=== PATIENT | female | born 1960 | race African-American/Black ===

== ENCOUNTER 2023-01-02 08:47 | Outpatient (CLI) | payer OTHER, SELFPAY ==
--- NOTE | 2023-01-02 11:00 | NEURO_ITS ---
Impression: # Complains of pain and numbness. # Left ulnar neuropathy across the elbow. # Needle/EMG exam mildly neurogenic in left first dorsal interosseous. Nerve Conduction Studies Anti Sensory Summary Table Stim Site NR Peak (ms) P-T Amp (?V) Site1 Site2 Delta-P (ms) Dist (cm) Tapan (m/s) Left Median Anti Sensory (2-3nd Digit) Wrist 3.1 70.7 Wrist 2-3nd Digit 3.1 14.0 45 Wrist 3.3 60.0 Wrist 2-3nd Digit 3.1 14.0 45 Right Median Anti Sensory (2-3nd Digit) Wrist 3.4 40.5 Wrist 2-3nd Digit 3.4 14.0 41 Wrist 3.2 55.9 Wrist 2-3nd Digit 3.4 14.0 41 Left Radial Anti Sensory (Base 1st Digit) Wrist 1.7 48.2 Wrist Base 1st Digit 1.7 0.0 Right Radial Anti Sensory (Base 1st Digit) Wrist 2.7 42.3 Wrist Base 1st Digit 2.7 0.0 Left Ulnar Anti Sensory (5th Digit) Wrist 2.9 81.9 Wrist 5th Digit 2.9 14.0 48 Right Ulnar Anti Sensory (5th Digit) Wrist 2.9 29.7 Wrist 5th Digit 2.9 14.0 48 Motor Summary Table Stim Site NR Onset (ms) O-P Amp (mV) Site1 Site2 Delta-0 (ms) Dist (cm) Tapan (m/s) Left Median Motor (Abd Poll Brev) Wrist 3.4 4.7 Elbow Wrist 4.6 26.0 57 Elbow 8.0 4.5 Right Median Motor (Abd Poll Brev) Wrist 3.8 7.9 Elbow Wrist 4.7 27.0 57 Elbow 8.5 6.1 Left Ulnar Motor (Abd Dig Minimi) Wrist 2.3 5.9 A Elbow Wrist 5.7 28.0 49 A Elbow 8.0 4.6 B Elbow Wrist 4.1 21.0 51 B Elbow 6.4 8.1 Right Ulnar Motor (Abd Dig Minimi) Wrist 2.7 11.2 A Elbow Wrist 5.2 29.0 56 A Elbow 7.9 9.8 F Wave Studies NR F-Lat (ms) L-R F-Lat (ms) Left Median (Mrkrs) (Abd Poll Brev) 26.76 0.69 Right Median (Mrkrs) (Abd Poll Brev) 27.46 0.69 Left Ulnar (Mrkrs) (Abd Dig Min) 27.27 0.00 Right Ulnar (Mrkrs) (Abd Dig Min) 27.27 0.00 EMG Side Muscle Nerve Root Ins Act Fibs Amp Dur Recrt Comment Right 1stDorInt Ulnar C8-T1 Nml Nml Nml Nml Nml Right Ext Indicis Radial (Post Int) C7-8 Nml Nml Nml Nml Nml Right Ext Digitorum Radial (Post Int) C7-8 Nml Nml Nml Nml Nml Right BrachioRad Radial C5-6 Nml Nml Nml Nml Nml Right PronatorTeres Median C6-7 Nml Nml Nml Nml Nml Right Abd Poll Brev Median C8-T1 Nml Nml Nml Nml Nml Left 1stDorInt Ulnar C8-T1 Nml Nml Decr >12ms Reduced Left Ext Indicis Radial (Post Int) C7-8 Nml Nml Nml Nml Nml Left Ext Digitorum Radial (Post Int) C7-8 Nml Nml Nml Nml Nml Left BrachioRad Radial C5-6 Nml Nml Nml Nml Nml Left PronatorTeres Median C6-7 Nml Nml Nml Nml Nml Left Abd Poll Brev Median C8-T1 Nml Nml Nml Nml Nml MTDD
== END 2023-01-02 08:48 | disposition home or self-care (01) ==
LOC: ANHNEURO 08:49
PROVIDERS: PCP Internal Medicine Infectious Disease; Visit Provider Internal Medicine Infectious Disease
DX: G62.9 Polyneuropathy, unspecified (principal); G56.22 Lesion of ulnar nerve, left upper limb
CPT/HCPCS: 95886; 95911

== ENCOUNTER 2023-11-18 07:56 | Outpatient (CLI) | payer OTHER, SELFPAY ==
--- NOTE | 2023-11-18 08:06 | ECG_ITS ---
Test Date: 2023-11-18 08:19:57 Measurements Intervals Pierce Rate: 75 P: 45 ME: 178 QRS: 66 QRSD: 87 T: 58 QT: 402 QTc: 449 Interpretive Statements SINUS RHYTHM BASELINE ARTIFACT- I, II, III, AVR, AVL, AVF, V3-V6 NORMAL ECG No previous ECG available for comparison Electronically Signed On 11-18-2023 09:06:58 CDT by Ilan Martinez D.O.
[2023-11-18 08:35] LABS: Appearance Urine Clear (Clear); Bacteria Urine None Seen /hpf; Bilirubin Urine Negative (Negative); Blood Urine Negative (Negative); Color Urine Yellow (Yellow); Glucose Urine UA Negative (Negative); Ketones Urine Negative (Negative); Leukocyte Esterase Ur Negative LEU/UL (Negative); Nitrate Urine Negative (Negative); Non Pathogenic Casts 0-2; Protein Urine Trace mg/dL (Negative); Prothrombin Time 13.9 Seconds (11.1-14.7); RBC Urine 0-2 /hpf (0-2); Specific Grav Ur 1.005 (1.001-1.035); Squamous Epithelial Cell Urine None Seen /hpf (Few); Urobilinogen Urine 0.2 mg/dL (<2.0); WBC Urine 0-5 /hpf (0-3); pH Urine 5.5 (5.0-9.0)
[2023-11-18 08:45] LABS: Add Urine Microscopic? YES; Hematocrit 35.3 % (37.0-47.0); Hemoglobin 11.8 g/dL (12.0-15.0); Mean Corpuscular HGB Conc 33.4 g/dl (32-36); Mean Corpuscular Hemoglobin 29.6 pg (26-34); Mean Corpuscular Volume 88.5 fl (80-100); Mean Platelet Volume 8.6 fl (7.4-10.4); Platelet Count Result 400 k/mm3 (150-375); Red Blood Count 3.99 M/mm3 (4.2-5.4); Red Cell Distribution Width 13.5 % (11.5-14.5); White Blood Count 6.3 K/mm3 (4.5-10.0)
[2023-11-18 08:47] LABS: Anion Gap 16 mmol/L (4-12); Blood Urea Nitrogen 21 mg/dL (7-17); Calcium 9.2 mg/dL (8.4-10.2); Carbon Dioxide 20 mmol/L (22-30); Chloride 101 mmol/L (98-107); Estimated Glomerular Filt Rate 39; Glucose 120 mg/dL (65-110); Potassium 3.6 mmol/L (3.4-5.0); Sodium 137 mmol/L (137-145)
== END 2023-11-18 07:57 | disposition home or self-care (01) ==
PROVIDERS: PCP Internal Medicine Infectious Disease; Visit Provider Neurological Surgery
DX: M54.12 Radiculopathy, cervical region (principal); E11.9 Type 2 diabetes mellitus without complications; I10 Essential (primary) hypertension; Z01.818 Encounter for other preprocedural examination
CPT/HCPCS: 36415; 80048; 81001; 85027; 85610; 85730; 86850; 86900; 86901; 93005

== ENCOUNTER 2023-11-20 11:16 | Inpatient (IN) | payer OTHER, SELFPAY ==
[2023-11-15 14:18] VITALS: BMI 21.0
--- NOTE | 2023-11-15 14:20 | PC.NURSE ---
Report to the Outpatient Waiting Room, entrance under the green pavilion located off [facility], at time _0600_ on date _[id number]_. Planned Procedure Time: _0730_. Time changes happen often and if your time is changed the preop area will call you the afternoon before. - You and your visitor will be asked to self-screen and do not enter if you have any COVID symptoms. - A mask is optional within the hospital at this time. Patients may have clear liquids (water, carbonated beverages, clear teas, apple juice) until 3 hours prior to surgery with a maximum of 20 ounces. - No food from midnight until time of surgery Take the following medications with a SIP of water the morning of surgery: ___Gabapentin and if needed Acetaminophen. DO NOT STOP ANY OF YOUR OTHER PRESCRIPTION MEDICATIONS PRIOR TO SURGERY ?EXCEPT THE FOLLOWING Medications to discontinue per physician None Date to take last dose Please no make-up, nail gibraltarian, hairspray, perfume, deodorant, or body powder the day of surgery. No jewelry (including any body piercings) or valuables the day of surgery, leave them at home. Please take a shower or bath the night before, or the morning of, surgery with an antibacterial soap. Wear comfortable, loose fitting clothing. - Jewelry must be removed prior to entering the operating room. Rings and piercings that are not removed may be cut off. - The hospital will not accept responsibility for valuables. - Please leave all valuables, including medications, at home the day of surgery. If you are going home after surgery, a licensed hog driver must drive you home. - NO public transportation without another adult if you receive anesthesia. - We recommend that an adult stay with you for 24 hours following discharge. - We also recommend that you do not drive, make important decision, drink alcoholic beverages, or take any drugs that were not prescribed by your health care provider for at least 24 hours after your discharge time. Follow any additional instructions given to you from your surgeon. If you or anyone in your household have experienced Covid symptoms in the past week, please notify your surgeon or the nurse liaison at the phone number below for possible testing. Telephone instructions given to __Dianne___and asked if any additional questions and then verbalized understanding. Patient advised to call surgeon office or pre surgery nurse liaison [phone] if any additional questions.
[2023-11-20] VITALS (22 sets, daily range): BP systolic 110–181; BP diastolic 45–91; PULSE 72–98; RESP 12–20; TEMP 36–36.7; O2SAT 92–100
--- NOTE | ~2023-11-20 | XR_ITS ---
XR fluoroscopy no charge Indication: Posterior cervical decompression TECHNIQUE: Fluoroscopy used during posterior cervical decompression performed by [Destiny rosado MD] on 11/20/2023. 6 seconds of fluoroscopy with 6 fluoroscopic images captured. FINDINGS: Correlate with procedure note. IMPRESSION: Fluoroscopy used during posterior cervical decompression. Reviewed, dictated and finalized at location B.
[2023-11-20 06:30] LABS: Glucose Point of Care 123 mg/dl (65-105)
[2023-11-20 06:46] LABS: Hemoglobin A1C 5.7 % (<5.7)
--- NOTE | 2023-11-20 06:59 | WPDANESEPPF ---
Anes - Initial Pre Proc Eval Procedure: Operation Date: 11/20/23 07:30 Proposed Procedures p Posterior Cervical Decompression and Fusion C3-4, C4-5, C5-6, C6-7 - Destiny Bee MD Date/Time: 11/20/23 06:59 Surgeon: Destiny Bee MD Pre Op Diagnosis: cervical myelopathy Patient Data Age: 63 Gender: F Height: 1.55 m Weight: 50.5 kg Allergies Allergy/AdvReac Type Severity Reaction Status Date / Time No Known Allergies Allergy Verified 11/15/23 14:04 Home Medications Medication Instructions Recorded Confirmed Type acetaminophen 650 mg 650 mg PO Q8H PRN Pain 05/31/23 11/15/23 History tablet,extended release (Tylenol 8 Hour) atorvastatin 40 mg tablet 40 mg PO DAILY 05/31/23 11/15/23 History gabapentin 100 mg capsule 100 mg PO DAILY 05/31/23 11/15/23 History hydrochlorothiazide 12.5 mg tablet 12.5 mg PO DAILY 05/31/23 11/15/23 History Laboratory Tests 11/20/23 11/20/23 06:25 06:28 POC Capillary Glucose 123 H mg/dl (65-105) Hemoglobin A1c 5.7 % (<5.7) Patient hx anesthesia problems: none Family hx anesthesia problems: none Results Review: All pre-operative results and documents have been reviewed as part of the pre-operative evaluation. [facility] Past Medical History Medical History (Updated 11/20/23 @ 06:59 by Benedicto Jimenez MD) Diabetes HTN (hypertension) Hyperlipidemia Kidney disease Surgical History Surgical History (Updated 11/20/23 @ 07:03 by Benedicto Jimenez MD) History of total hip arthroplasty Family History Family History Father Diabetes mellitus Hypertension Mother Diabetes mellitus Hypertension Depression Heart disease Sibling Diabetes mellitus Hypertension Other Cerebrovascular accident Hypertension Social History Social History Smoking packs per day: 1 Smoking cigarettes per day: 20.0 Years smoked: 42 Smoking pack-years: 42.00 Smoking status: Former smoker Tobacco type: cigarettes Smoking end date: 12/15/21 Alcohol intake: current Drinks per week: 12 Alcohol use details: 2-3 beers per day Substance use type: does not use Do You Feel Safe in your Home?: Yes Lack of Transportation: No Lack of Food: Never True Current Housing: Decline to Answer Concerned About Future Housing: YES Difficulty Paying Gas/Electric Bills: No Difficulty Paying for Meds: No Currently Unemployed: No Education: Associate Degree Difficulty w/ Childcare or Family Care: No Living arrangements: with family Spiritual care concerns: No Anes - Eval Final PreProcedure Day of Procedure 11/20/23 06:59 Patient weight: normal Heart: regular rate and rhythm Lungs: clear to auscultation Airway: Mallampati scale class II Neurological: alert and oriented Last oral intake: >/= 8 hours ASA classification: III Emergent: no Anesthetic plan: proceed Anesthesia type and monitoring: general ETT and standard monitoring Results Review: All pre-operative results and documents have been reviewed as part of the pre-operative evaluation. Informed Consent: The patient's anesthetic plan and its attendant risks and benefits were discussed with the patient/family/POA. Questions were solicited and answers provided to the satisfaction of the patient/family/POA.
[2023-11-20] MEDS: LACTATED RINGERS 1,000 ML 30 ML IV CONT ×2 (07:00→11:12)
--- NOTE | 2023-11-20 07:17 | P.HP_ITS ---
H&P: HPI History of Present Illness Date/Time: 11/20/23 07:17 Chief Complaint: cervical myelopathy Narrative: From 07/31: Ms. Brand is a? 63-year-old female with history of diabetes, hypertension, hyperlipidemia, CKD, and COPD who returns for follow-up of cervical myelopathy.? The patient has been following with Chelsea who recognized that she was myelopathic and ordered an MRI cervical spine.? The patient reports several years of symptoms including pain in her neck, electric shock-like pains into the left arm to the wrist, numbness in her thumbs in fingertips on both sides, some difficulty with gripping objects, and some occasional feelings of imbalance.? She states that her hands will develop spasms and make it difficult for her to use them at times.? She does note some difficulty swallowing at times and feeling like things get stuck in her throat. ? She notably has had issues with what sounds like a bleeding gastric ulcer for which she has had couple sets upper and lower endoscopies.? She states that these symptoms are stable at this time.? Her diabetes has been so well controlled that she was taken off of her medication.? Regarding her COPD, she does not use oxygen and takes inhaler on occasion.? She does not take any blood thinners and does not smoke. 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 From 09/18: She denies any significant changes in her symptoms since her last visit. She returns today for follow-up with her CT scan and to discuss surgery. Review of Systems Review of Systems: All systems reviewed & are unremarkable except as noted in HPI and below PMFSH Past Medical History Medical History (Updated 11/20/23 @ 06:59 by Benedicto Jimenez MD) Diabetes HTN (hypertension) Hyperlipidemia Kidney disease Surgical History Surgical History (Updated 11/20/23 @ 07:03 by Benedicto Jimenez MD) History of total hip arthroplasty Family History Family History Father Diabetes mellitus Hypertension Mother Diabetes mellitus Hypertension Depression Heart disease Sibling Diabetes mellitus Hypertension Other Cerebrovascular accident Hypertension Social History Social History Smoking packs per day: 1 Smoking cigarettes per day: 20.0 Years smoked: 42 Smoking pack-years: 42.00 Smoking status: Former smoker Tobacco type: cigarettes Smoking end date: 12/15/21 Alcohol intake: current Drinks per week: 12 Alcohol use details: 2-3 beers per day Substance use type: does not use Do You Feel Safe in your Home?: Yes Lack of Transportation: No Lack of Food: Never True Current Housing: Decline to Answer Concerned About Future Housing: YES Difficulty Paying Gas/Electric Bills: No Difficulty Paying for Meds: No Currently Unemployed: No Education: Associate Degree Difficulty w/ Childcare or Family Care: No Living arrangements: with family Spiritual care concerns: No Meds Home Medications and Allergies Home Medications Medication Instructions Recorded Confirmed Type acetaminophen 650 mg 650 mg PO Q8H PRN Pain 05/31/23 11/15/23 History tablet,extended release (Tylenol 8 Hour) atorvastatin 40 mg tablet 40 mg PO DAILY 05/31/23 11/15/23 History gabapentin 100 mg capsule 100 mg PO DAILY 05/31/23 11/15/23 History hydrochlorothiazide 12.5 mg tablet 12.5 mg PO DAILY 05/31/23 11/15/23 History Allergies Allergy/AdvReac Type Severity Reaction Status Date / Time No Known Allergies Allergy Verified 11/20/23 07:09 Vital Signs Vital Signs - 24 hr 11/20/23 07:00 Temperature 97 F L Pulse Rate 84 Respiratory Rate 14 Blood Pressure 181/91 H Pulse Oximetry 100 Oxygen Delivery Room Air Exam Narrative: Positive Suazo's on right Positive Babinski on right 3-beat clonus on right 3+ patellar reflexes Unless otherwise stated above, the patient's physical exam is as follows: General: -Well developed and well nourished. No a cute distress. Cooperative with exam. Mental status: -Awake and oriented to person, place, an d time. Affect is normal. -Fund of knowledge appropriate -Recent and remote memory are intact -Attention span and concentration appear normal -Language function is normal -There is no evidence of aphasia in conv ersational speech. Cranial nerves: -CN II: Visual wood full to bedside co nfrontation -CN III, IV, : Pupils equal, round, an d reactive to light; extraocular movements, no ptosis, no nystagmus -CN V: Facial sensation intact in V1 thr ough V3 distributions -CN VII: Face symmetric -CN VIII: Hearing intact to conversation al speech -CN IX, X: Palate elevates symmetrically ; normal phonation -CN XI: Symmetric full strength of acosta ocleidomastoid and trapezius muscles -CN XII: Tongue protrudes midline Integumentary: -No obvious skin lesions or masses Motor: -Muscle tone normal without spasticity o f flaccidity. No atrophy. No fascicu lations. -No pronator drift -Right upper extremity: deltoid 5/5, bic eps 5/5, triceps 5/5, wrist extensors 5/5, wrist flexors 5/5, intrinsics 5/5 -Left upper extremity: deltoid 5/5, corie ps 5/5, triceps 5/5, wrist extensors 5/5, wrist flexors 5/5, intrinsics 5/5 -Right lower extremity: iliopsoas 5/5, q uadriceps 5/5, hamstrings 5/5, tibialis anterior 5/5, gastroc-soleus 5/5, EHL 5/5 -Left lower extremity: iliopsoas 5/5, qu adriceps 5/5, hamstrings 5/5, tibialis anterior 5/5, gastroc-soleus 5/5, EHL 5/5 Sensory: -Intact to light touch throughout -Normal proprioception throughout Reflexes: -1-2+ DTR's throughout -No Suazo's, clonus, or Babinski bilat erally Musculoskeletal: -Symmetric; no deformities, masses or te nderness; no known fractures -Cervical spine: no tenderness to palpat ion, no pain, and normal cervical spine movements. Normal cervical lordosis -Spurling's test negative -Tinel's sign negative -Shoulder: no pain on provocative testin g bilaterally -Elbow: no instability, subluxation, or laxity bilaterally ? I personally reviewed the MRI cervical spine and packs which shows degenerative disc disease most pronounced at C4-5, C5-6, and C6-7 severe stenosis at C4-5 and C5-6 causing spinal cord compression with T2 cord signal change at these levels Assessment and Plan Assessment and plan (1) Cervical spondylosis with myelopathy: Code(s): M47.12 - Other spondylosis with myelopathy, cervical region Status: Acute Plan Ms. Brand is a? 63-year-old female with history of diabetes, hypertension, hyperlipidemia, CKD, and COPD who presents with several years of myelopathic symptoms including electric shooting pains down the right arm, and numbness in the hands, difficulty gripping objects, some mild imbalance issues as well as neck pain.? On physical exam, she has a Chiquis sign on the right, hyperreflexia, positive Babinski's, and 3 beat clonus on the right side.? MRI cervical spine shows multilevel degenerative disease with severe stenosis at C4- 5 and C5-6 with T2 cord signal change at these levels as well.? I reviewed the imaging with the patient and her daughter. Given that she is subjectively and objectively myelopathic, I have recommended surgery in the form of posterior cervical decompression and fusion C3-7.? Plan: -To OR today for PCDF C3-7
--- NOTE | 2023-11-20 07:17 | WPDHPUPDATE1 ---
History and Physical Update Update Date/Time: 11/20/23 07:17 History and Physical has been reviewed, including an updated exam of the patient. There are NO changes in the patient's condition. Risks, benefits, and alternatives have been discussed and questions answered. Patient agrees to proceed with procedure.
[2023-11-20] MEDS: ceFAZolin 2 GM/D5W 50 ML 2 GM/50 ML BAG IVPB (07:45)
[2023-11-20] MEDS: BUPIVACAINE/EPINEPHRINE 0.5% 50 ML VIAL 30 ML INFILTRATE (08:52)
[2023-11-20] MEDS: BACITRACIN OINTMENT 15 GM TUBE 1 APPLIC TOPICAL (08:52)
--- NOTE | 2023-11-20 11:20 | P.OPB_ITS ---
Procedure Note - Brief Procedure Note - Brief Date of procedure: 11/20/23 cervical myelopathy Post-op diagnosis: Same Procedure performed: 1. Cervical laminectomies C4, C5, and C6 2. Cervical lateral mass screw placement right C3, bilateral C4, C5, C6, and C7 3. Posterior cervical arthrodesis C3-7 4. Use of neuromonitoring 5. Use of C-arm Surgeon: Destiny Bee MD Illustrator Set: Scot Anesthesia: GETA Findings: Small/hypoplastic lateral mass on left at C3, so a screw was not attempted to be placed Estimated blood loss (mL): 200 Drains: Yes Packing: No Pathology: None sent Complications: No immediate complications Condition: Stable Disposition: PACU
[2023-11-20 11:21] LABS: Glucose Point of Care 136 mg/dl (65-105)
[2023-11-20] MEDS: fentaNYL CITRATE INJ (*CRX) 100 MCG/2 ML VIAL 25 MCG IV PUSH ×4 (11:25→11:51)
--- NOTE | 2023-11-20 12:01 | P.OP_ITS ---
Procedure Note - Detailed Date of Procedure 11/20/23 Pre-op Diagnosis cervical myelopathy Post-op Diagnosis Same Procedure Performed 1. C4, C5, and C6 laminectomies 2. Right C3, bilateral C4, C5, C6, and C7 lateral mass instrumentation 3. C3-4, C4-5, C5-6, C6-7 arthrodesis with autograft 4. Use of C-arm for fluoroscopy 5. Use of neuromonitoring for MEP, SSEP Surgeon Destiny Bee MD Aquatic Ecologist Scot Anesthesia General Indications Ms. Brand is a? 63-year-old female with history of diabetes, hypertension, hyperlipidemia, CKD, and COPD who presents with several years of myelopathic symptoms including electric shooting pains down the right arm, and numbness in the hands, difficulty gripping objects, some mild imbalance issues as well as neck pain.? On physical exam, she has a Chiquis sign on the right, hyperreflexia, positive Babinski's, and 3 beat clonus on the right side.? MRI cervical spine shows multilevel degenerative disease with severe stenosis at C4- 5 and C5-6 with T2 cord signal change at these levels as well.?I have recommended surgery in the form of posterior cervical decompression and fusion C3-4, C4-5, C5-6, and C6-7. Risks including bleeding, pain, infection, weakness, worsening symptoms, paralysis, CSF leak, and anesthetic complications were discussed. We discussed that the goal of surgery is to prevent worsening of current symptoms. The patient provided written informed consent to proceed. Description of Procedure The patient was brought to the operating room where endotracheal anesthesia was induced. Neuromonitoring leads were applied, and a pre-flip baseline was obtained with normal MEPs and SSEPs. The Pelletier headholder was applied, and the patient was transferred to the operating table in the prone position. The head was secured to the bed. All pressure points were padded. Neuromonitoring was repeated which was stable. The C-arm was used to evaluate the planned incision. The planned surgical site was prepped and draped in usual sterile fashion. Time out was conducted, and local anesthesia was injected. A 10-blade scalpel was used to make the incision. The subcutaneous tissue was dissected with the bovie until the spinous processes were encountered. Self- retaining retractors were placed. A clamp was placed on a spinous process which was confirmed to be the C3 level with the C-arm. The incision was extended inferiorly to better expose down to the inferior level. The muscles were elevated in a subperiosteal fashion to expose the laminae and lateral masses of C3 through C7 bilaterally. The facet joints were exposed and defined with the bovie, and the airline pilot flight instructor holes for the lateral mass screws were created with the high-speed drill. On the right side, the hand drill was used to drill through the lateral mass to a depth of 12mm at C3. The trajectory was palpated with a ball-tip probe to ensure where were no breeches in the bone. The drill was then lengthened to 14mm. The 3.0mm tap was then passes. This was repeated at C4, C5, C6 and C7. Bone wax was placed over the screw holes. This was then repeated on the left side at C4, C5, C6, and C7. The lateral mass at C3 was too small for a screw, so this was omitted. No bone breaches were noted at the depth of 14mm. We then turned our attention to the laminectomies. The high-speed drill was used to create a trough through the laminae of C4, C5, and C6. The posterior elements were elevated with a Leksell and Kerrison rongeurs, and the bone was passed off to be morselized for autograft. The ligamentum flavum was elevated with the bone. Small residual pieces of ligamentum and bone were removed with the kerrison. T The facet joints were decorticated with the drill.? We ensured hemostasis with the bipolar and Floseal. We next turned our attention to the lateral mass screws. The screw trajectories were palpated again with the balltip probe. 14 x 3.5mm screws were placed at each level bilaterally. A 50mm diamond was placed bilaterally followed by set screws which were final tightened. The area was copiously irrigated. Morselized autograft was placed lateral to the screws bilaterally and into the facets. A hemovac drain was placed in the epidural space and tunneled inferiorly. All neuromonitoring measurements remained stable throughout the case. The muscle was approximated with 0 vicryl. The fascia was closed with 0 vicryl as well. The dermis was closed with 2-0 and 3-0 vicryl. The skin was closed with running 3-0 nylon. The drain was secured with a nylon as well. Sterile dressings were placed. The patient was then removed from the Holton headholder and returned supine. The patient was extubated and transferred to the PACU in stable condition. Billing codes: 42075, 63102, [id number], 17076 Estimated Blood Loss 200 Drains Yes Packing No Pathology None sent Complications None Condition Stable Disposition PACU [facility] Billing Surgery - Charge Forward: Surgery Billing
--- NOTE | 2023-11-20 12:44 | PC.NURSE ---
Returned from OR per [ ]. Report received from [Megan].
[2023-11-20] MEDS: SODIUM CHLORIDE 0.9% IV 1,000 ML 100 ML IV CONT (13:27)
[2023-11-20] MEDS: ACETAMINOPHEN 500 MG TABLET 1000 MG PO ×3 (13:27→23:45)
--- NOTE | 2023-11-20 13:54 | ADMGEN ---
This patient, Irene Brand, was admitted to [facility] Room 331-01. Patient/family oriented to hospital policies and general routines including ID bracelet, bed and alarms, visiting hours, pain management, procedures, bathroom and other care routines, personal items, smoking policy, room service/diet, and visiting hours. Information on how to activate the Rapid Response Team has been discussed. Patient/Family are encouraged to report perceived risks to care and to ask questions if they do not understand what they are told or what they should do. Report from Megan.
[2023-11-20] MEDS: ceFAZolin 1 GM/NS 50 ML 1 GM/50 ML BAG IVPB ×2 (14:03→21:14)
[2023-11-20] MEDS: oxyCODONE HCL (*CRX) 5 MG TAB IR PO (15:13)
--- NOTE | 2023-11-20 15:43 | PCPTNOTE ---
On 11/20/23, the student, [Patricia Alegria], provided care and completed [facility] documentation on this patient. I have reviewed the student's documentation and agree with the findings.
[2023-11-20] MEDS: oxyCODONE HCL (*CRX) 5 MG TAB IR 10 MG PO ×2 (18:07→23:46)
[2023-11-20] MEDS: DOCUSATE SODIUM 100 MG CAPSULE PO (21:14)
[2023-11-20] MEDS: MORPHINE SULFATE (*CRX) 2 MG/ML INJ IV PUSH (21:16)
[2023-11-21 02:11] VITALS: BP 166/67; PULSE 69; RESP 16; TEMP 36.2; O2SAT 100
[2023-11-21] MEDS: oxyCODONE HCL (*CRX) 5 MG TAB IR 10 MG PO ×2 (05:01→20:53)
[2023-11-21] MEDS: ACETAMINOPHEN 500 MG TABLET 1000 MG PO ×3 (05:01→17:18)
[2023-11-21] MEDS: ceFAZolin 1 GM/NS 50 ML 1 GM/50 ML BAG IVPB ×3 (05:02→20:54)
[2023-11-21 05:53] VITALS: BP 176/71; PULSE 80; RESP 16; TEMP 36.3; O2SAT 99
--- NOTE | 2023-11-21 08:00 | WPDANESPN ---
Anes - Prog Note Post-Op Date/Time: 11/21/23 08:00 Cardiovascular status: normal Respiratory status: normal Airway patency: baseline Mental status: baseline Post-Op hydration status: normal Vital Signs: Last Vital Signs Temp 36.3 C L 11/21/23 05:53 Pulse 80 11/21/23 05:53 Resp 16 11/21/23 05:53 BP 176/71 H 11/21/23 05:53 Pulse Ox 99 11/21/23 05:53 O2 Del Method Room Air 11/20/23 15:24 O2 Flow Rate 2 11/20/23 12:55 Pain Score (VAS): 2/10 given pain medicine I/O: Intake & Output 11/20/23 11/21/23 11/21/23 23:59 07:59 15:59 Intake Total 50 50 Output Total 20 95 Balance 30 -45 11/20/23 11:19 POC Capillary Glucose 136 H Post-procedural complaints: none Patient Feedback: Patient satisfied with anesthetic care.
[2023-11-21] MEDS: oxyCODONE HCL (*CRX) 5 MG TAB IR PO ×2 (09:16→14:47)
[2023-11-21] MEDS: ATORVASTATIN 40 MG TABLET PO (09:17)
[2023-11-21] MEDS: DOCUSATE SODIUM 100 MG CAPSULE PO ×2 (09:17→20:54)
[2023-11-21] MEDS: hydroCHLOROthiazide 12.5 MG CAPSULE PO (09:17)
[2023-11-21] MEDS: GABAPENTIN 100 MG CAPSULE PO (09:17)
[2023-11-21 10:16] VITALS: BP 120/45; PULSE 98; RESP 18; TEMP 36.7; O2SAT 96
[2023-11-21 14:16] VITALS: BP 133/61; PULSE 90; RESP 18; TEMP 36.1; O2SAT 100
--- NOTE | 2023-11-21 17:02 | WPDNEUROSGPN ---
Progress Note: A&P Assessment and Plan (1) Status post cervical arthrodesis: Code(s): Z98.1 - Arthrodesis status Status: Acute Plan -Keep hemovac drain for now -Pain control -PT/OT -Out of bed to chair -Will start DVT ppx tonight -Anticipate discharging home tomorrow Subjective Date/time seen: 11/21/23 17:02 Interval history: Ms. Brand is having quite a bit of neck pain which is improved compared to yesterday. She can get some pain into the shoulders. She was able to ambulate with physical therapy. She is tolerating PO, voiding independently, and passing gas. She thinks the sensation in her right hand is somewhat improved Review of Systems Review of Systems: All systems reviewed & are unremarkable except as noted in HPI and below Exam Narrative: AOx4 Full strength in upper extremities Sensation intact to light touch Small amount of serosanguinous drainage on dressing Objective Data Vital Signs Vital Signs: Vital Signs - 24 hr 11/20/23 18:16 11/20/23 20:56 11/21/23 02:11 Temperature 96.8 F L 97.3 F L 97.2 F L Pulse Rate 87 72 69 Respiratory Rate 18 20 16 Blood Pressure 145/55 H 178/73 H 166/67 H Pulse Oximetry 92 100 100 11/21/23 05:53 11/21/23 10:16 11/21/23 14:16 Temperature 97.4 F L 98.0 F 97.0 F L Pulse Rate 80 98 90 Respiratory Rate 16 18 18 Blood Pressure 176/71 H 120/45 L 133/61 Pulse Oximetry 99 96 100 Intake/Output Intake/Output: Intake & Output 11/18/23 11/19/23 11/20/23 11/21/23 23:59 23:59 23:59 23:59 Intake Total 350 890 Output Total 50 95 Balance 300 795 Meds/Results Medications: Active Medications Generic Name Dose Route Start Last Admin Trade Name Freq PRN Reason Stop Dose Admin Acetaminophen 1,000 mg 11/20/23 11:20 11/21/23 11:30 Acetaminophen 500 Mg Tablet PO 1,000 mg Q6H BRYAN Administration Al Hydrox/Mg Hydrox/Simethicone 20 ml 11/20/23 11:16 Mag Hydrox/Al Hydrox/Simeth 30 Ml Udc PO Q4H PRN Indigestion/Heartburn Atorvastatin Calcium 40 mg 11/21/23 09:00 11/21/23 09:17 Atorvastatin 40 Mg Tablet PO 40 mg DAILY BRYAN Administration Bisacodyl 10 mg 11/20/23 11:16 Bisacodyl 10 Mg Suppository RECTAL DAILY PRN Constipation Cyclobenzaprine HCl 10 mg 11/20/23 11:16 Cyclobenzaprine Hcl 10 Mg Tablet PO TID PRN Muscle Spasms Docusate Sodium 100 mg 11/20/23 21:00 11/21/23 09:17 Docusate Sodium 100 Mg Capsule PO 100 mg Q12HR BRYAN Administration Gabapentin 100 mg 11/21/23 09:00 11/21/23 09:17 Gabapentin 100 Mg Capsule PO 100 mg DAILY BRYAN Administration Hydrochlorothiazide 12.5 mg 11/21/23 09:00 11/21/23 09:17 Hydrochlorothiazide 12.5 Mg Capsule PO 12.5 mg DAILY BRYAN Administration Cefazolin Sodium 1 gm in 50 mls @ 100 mls/hr 11/20/23 14:00 11/21/23 14:48 Ancef 1 Gm/Ns 50 Ml IVPB 100 mls/hr Q8HR BRYAN Administration Morphine Sulfate 2 mg 11/20/23 11:16 11/20/23 21:16 Morphine Sulfate (*Crx) 2 Mg/Ml Inj IV PUSH 2 mg Q2H PRN Administration Breakthrough Pain Ondansetron HCl 4 mg 11/20/23 11:16 Ondansetron Inj 4 Mg/2 Ml Vial IV PUSH Q8H PRN Nausea And Vomiting Oxycodone HCl 10 mg 11/20/23 11:16 11/21/23 05:01 Oxycodone Hcl (*Crx) 5 Mg Tab Ir PO 10 mg Q4H PRN Administration Pain Rated 7-10 Oxycodone HCl 5 mg 11/20/23 11:16 11/21/23 14:47 Oxycodone Hcl (*Crx) 5 Mg Tab Ir PO 5 mg Q4H PRN Administration Pain Rated 4-6 Senna/Docusate Sodium 1 tab 11/20/23 11:16 Senna/Docusate Sodium Tablet PO HS PRN Constipation Radiology Results: ITS Impressions Fluoroscopy 11/20/23 10:45 IMPRESSION: Fluoroscopy used during posterior cervical decompression.
[2023-11-21] MEDS: CYCLOBENZAPRINE HCL 10 MG TABLET PO (18:23)
[2023-11-21 22:09] VITALS: BP 163/87; PULSE 85; RESP 20; TEMP 37.2; O2SAT 100
[2023-11-22] MEDS: ACETAMINOPHEN 500 MG TABLET 1000 MG PO ×3 (00:16→13:55)
[2023-11-22] MEDS: oxyCODONE HCL (*CRX) 5 MG TAB IR 10 MG PO (05:28)
[2023-11-22] MEDS: ceFAZolin 1 GM/NS 50 ML 1 GM/50 ML BAG IVPB ×2 (05:29→13:55)
[2023-11-22 06:16] VITALS: BP 173/81; PULSE 87; RESP 18; TEMP 36.3; O2SAT 98
[2023-11-22] MEDS: DOCUSATE SODIUM 100 MG CAPSULE PO (09:09)
[2023-11-22] MEDS: CYCLOBENZAPRINE HCL 10 MG TABLET PO ×2 (09:09→17:32)
[2023-11-22] MEDS: GABAPENTIN 100 MG CAPSULE PO (09:09)
[2023-11-22] MEDS: ATORVASTATIN 40 MG TABLET PO (09:09)
[2023-11-22] MEDS: hydroCHLOROthiazide 12.5 MG CAPSULE PO (09:09)
[2023-11-22 14:00] VITALS: BP 152/72; PULSE 84; RESP 16; TEMP 36.3; O2SAT 97
--- NOTE | 2023-11-25 16:07 | P.DS_ITS ---
DS: Admitting Diagnosis Discharge Date 11/22/23 Admitting Diagnosis Cervical myelopathy DS: Discharge Diagnosis Discharge Diagnosis (1) Status post cervical arthrodesis: Code(s): Z98.1 - Arthrodesis status Status: Acute DS: Summary Hospital Course Hospital Course: Ms. Brand presented for surgery on November 19; please see the operative note for more details. She was transferred to the floor after surgery. PT/OT were consulted who cleared her for discharge home. Her hemovac drain was removed on POD2. She was tolerating oral intake and voiding independently. She was determined ready for discharge home on POD2. Time Spent with Patient Time attestation: Total time spent providing and/or coordinating discharge services: Discharge Plan Discharge Consulting providers: Benedicto Jimenez; Daniel Toscano; Arcelia Peterson Discharging Clinician: Destiny Bee Patient Disposition: Home, Self-Care Activity: other - see discharge instructions Diet: as tolerated Wound Care Instructions: follow printed instructions Discharge Instructions: Discharge Instructions Procedure: Posterior cervical decompression and fusion Your doctor removed bone and ligament to decompress your spinal cord and nerve roots, and then placed hardware to stabilize the spine. Here are some instructions to follow upon discharge from the hospital to help in your recovery. Activity: Unless released by your doctor, you should not return to work. You should rest at home and let your body heal. Taking short walks is encouraged, but avoid strenuous exercise. Do not jog, run, lift weights, bicycle, or participate in other exercises unless specifically allowed by your doctor. Most importantly, avoid lifting objects heavier than a telephone book or a carton of milk as this places a strain on your neck. If possible, avoid household activities that involve lifting such as laundry, grocery shopping, or childcare. Try to arrange for help from friends and family for these activities while your neck heals. You should not drive for 7-10 days, until you are both off of narcotics and your neck has loosened up enough to safely check your blind spots. You may remove the dressing and shower starting on post-operative day 2 (Saturday). After showering, lightly dab your wound dry. Do not take baths or sit in a hot tub or pool until approved by your doctor. You may get your incision wet with soap and water, but do not submerge the incision under water. DO NOT SMOKE TOBACCO. Smoking has been proven to interfere with the normal healing of the bones in your neck. Smoking will dramatically reduce the success rate of your surgery. Diet: You can return to your usual diet, unless instructed otherwise by your doctor. Medications: You should resume taking all of your normal medications unless instructed otherwise by your doctor. You may take Tylenol 1000mg every 6 hours as needed for pain. If your pain is still uncontrolled after Tylenol, then take oxycodone. You may also take flexeril for neck pain and muscle spasms every 8 hours. However, you should not take anti-inflammatory medications (such as Motrin, Advil, ibuprofen, naproxen) unless specifically approved by your doctor. These medications can prevent your bones from healing properly after surgery. If you have questions about your normal medications (for example, those prescribed for high blood pressure), you should contact your primary care doctor. You will be given a prescription for pain medications and possibly a laxative, as pain medications can cause constipation. Take the pain medication as instructed. If your pain is not reasonably controlled by the medications, contact your doctor's office. Follow-up appointment: You should already have a follow-up appointment scheduled with Dr. Bee for removing your stitches in 2 weeks. If you do not have an appointment, call to schedule one. When to call our office: Although your surgery and recovery will likely be uneventful, you may have some residual aches and pains in your neck and/or arms. This is normal and should improve in the next few weeks. However, should you experience any of the following, call our office immediately. For medical emergencies, call [phone]. For urgent calls after hours, please call our exchange at [phone]. 1. Fevers 2. Drainage from your incision, or surrounding redness or swelling 3. Pain that is progressively getting worse and is not relieved by your medications 4. New numbness or weakness 5. Difficulty controlling your bladder 6. Loss of control of your bowels Destiny Bee MD [facility] [address], [place] [address] Patient Instructions: Antibiotic Form, How to Stop Smoking (DC), Cigarette Smoking and Your Health (GEN) Stand Alone Forms: General Discharge Information Follow-up/Referrals: Destiny Bee MD [Physician] - Discharge Medications: New cyclobenzaprine 10 mg Tablet 10 mg PO TID PRN (Reason: Muscle Spasms) 10 Days Qty: 30 0RF sennosides-docusate sodium [Senokot-S] 8.6-50 mg Tablet 1 tab PO BID 7 Days Qty: 14 0RF oxycodone 5 mg Tablet 5 mg PO Q6H PRN (Reason: Pain Rated 4-6) 7 Days Qty: 28 0RF Continued atorvastatin 40 mg tablet 40 mg PO DAILY gabapentin 100 mg capsule 100 mg PO DAILY hydrochlorothiazide 12.5 mg tablet 12.5 mg PO DAILY acetaminophen [Tylenol 8 Hour] 650 mg tablet extended release 650 mg PO Q8H PRN (Reason: Pain) Date of admission: 11/20/23 11:16 Primary Care Provider: Hemalatha,Neil Admitting Provider: Destiny Bee Attending physician on admission: Destiny Bee Condition: Stable
== END 2023-11-22 19:40 | disposition home or self-care (01) | DRG 321 ==
LOC: ANH3MEDSUR 14:04
PROVIDERS: Admitting Provider Neurological Surgery; PCP Internal Medicine Infectious Disease; Visit Provider Neurological Surgery
PROC: 0RG2071 Fusion of 2 or more Cervical Vertebral Joints with Autologous Tissue Substitute, Posterior Approach, Posterior Column, Open Approach (ICD-10-PCS; principal; 2023-11-20 07:30)
DX: M47.12 Other spondylosis with myelopathy, cervical region (principal); M48.02 Spinal stenosis, cervical region; I12.9 Hypertensive chronic kidney disease with stage 1 through stage 4 chronic kidney disease, or unspecified chronic kidney disease; E11.22 Type 2 diabetes mellitus with diabetic chronic kidney disease; N18.9 Chronic kidney disease, unspecified; J44.9 Chronic obstructive pulmonary disease, unspecified; E78.5 Hyperlipidemia, unspecified
CPT/HCPCS: 36415; 82948; 83036; 97110; 97161; 97165; 97530; 97535; 99199; A9270; C1713; J0330; J0690; J1171; J1596; J2003; J2250; J2270; J2371; J2405; J2704; J2710; J3010; J7030; J7120

== ENCOUNTER 2024-08-12 13:00 | Outpatient (CLI) | payer OTHER, SELFPAY ==
--- NOTE | ~2024-08-12 | XR_ITS ---
Cervical Spine: AP, lateral, open-mouth views Clinical History: Pain Findings: There is straightening of the normal cervical lordosis. There is posterior fusion from C3 t hrough C7. There is multilevel moderate degenerative disc narrowing. Pre-vertebral soft tissues are u nremarkable. Impression: Posterior fusion from C3 through C7. Moderate degenerative disc narrowing throughout the cervical spine. Reviewed, dictated and finalized at location . Impression: Posterior fusion from C3 through C7. Moderate degenerative disc narrowing throughout the cervical spine.
--- NOTE | ~2024-08-12 | XR_ITS ---
Left Shoulder Technique: AP and scapular Y views were obtained. Clinical History: Pain Findings: No fracture or dislocation is seen. Osseous alignment is anatomic. The glenohumeral and acr omioclavicular joint spaces are preserved. Soft tissues are unremarkable. Impression: Unremarkable left shoulder radiographs. Reviewed, dictated and finalized at [facility]. Impression: Unremarkable left shoulder radiographs.
--- OUTSIDE RECORDS SUMMARY | 2024-08-12 14:07 | XMS_ITS | Encounter Summary ---
Author Organization [facility] , [facility] Address [address] [place] [address] Phone Care Team Providers Care Nuclear Power Plant Engineer Name Role Phone Neil Penny MD Primary Care Provider [phone] Reason for Visit * Reason Comments Med Refill Encounter Details Date Type Department Care Team (Late st Contact Info) Description 02/03/2022 Refill [facility] [employer] [facility], [facility] [address] [address] [address] [place] [address] Rachid Orourke MD [address] [facility] [address] [place] [address] Social History Tobacco Use Types Packs/Day Years Used Date Smoking Tobacco: Every Day Cigarettes Smokeless Tobacco: Never Alcohol Use Standard Drinks/Week Comments Yes 0 (1 standard drink = 0.6 oz pure alcohol) Alcoholic Drinks/day: Occasional social drink Comments Unknown Sex and Gender Information Value Date Recorded Sex Assigned at Female 06/12/2022 11:21 AM EST Legal Sex Female 2:50 PM EDT Gender Identity Female 06/12/2022 11:21 AM EST Sexual Orientation Straight 06/12/2022 11 :21 AM EST documented as of this encounter Plan of Treatment Not on file documented as of this encounter Visit Diagnoses Not on filedocumented in this encounter Care Teams Nuclear Power Plant Engineer Relationship Specialty Start Date End Date Neil Penny MD [address] [place] [address] PCP - General Internal Medicine 12/19/20 documented as of this encounter
--- OUTSIDE RECORDS SUMMARY | 2024-08-12 14:07 | XMS_ITS | Clinical Summary ---
Author Organization [facility] Address [address] [place] [address] Care Team Providers Care Automation Driver Name Role Phone Neil Penny MD Primary Care Provider Source Comments [facility],non-owned Affiliates and Associated Physician Practices is amultiple site organization consisting of ambulatory clinics and hospital sitesin [place], [place], [place] and [place]. This disclosure is being madepursuant to the Care Everywhere program and may not contain all information available regarding this patient. Last updated 18.[facility] Allergies No known active allergies Medications * Be aware that medications may not be up to date on this document. Alwaysverify current medications with the patient. 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 Gender Identity Not on file Sexual Orientation Not on file Plan of Treatment Health Maintenance Due Date Last Done Comments COLOGUARD (AGES 45-75) - COL ON CA SCREENING 1960 COLON MONITORING 1960 COLONOSCOPY - COLON CA SCREENING 1960 CT COLONOGRAPHY - COLON CA SCREENING 1960 Colorectal Cancer Screening 1960 FIT - COLON CA SCREENING 1960 FLEX SIG - COLON CA SCREENING 1960 LIPID TESTING 1960 MAMMOGRAM 1960 HIV SCREENING 1975 HEPATITIS C SCREENING 03/22/1978 DTAP/TDAP/TD VACCINES (1 - Tdap) 1979 LUNG CANCER SCREENING 2010 PNEUMOCOCCAL VACCINE 50+ (1 of 1 - PCV) 2010 ZOSTER VACCINE (1 of 2) 2010 COVID-19 VACCINE (1 - 2023-2 5 season) 2023 DEPRESSION SCREENING 04/29/2024 INFLUENZA VACCINE (Season Ended) 2024 Respiratory Syncytial Virus (RSV) Vaccine Pt: or over 60 yrs (1 - 1-dose 75+ series) 2035 HEPATITIS B VACCINE Aged Out No longe r eligible based on patient's age to complete this topic HIB VACCINE Aged Out No longer eligi ble based on patient's age to complete this topic HPV VACCINE Aged Out No longer eligi ble based on patient's age to complete this topic MENINGOCOCCAL (Group B) VACC INE SHARED DECISION-MAKING Aged Out No longer eligibl e based on patient's age to complete this topic MENINGOCOCCAL GROUPS A/C/Y/W VACCINE Aged Out No longer eligible b ased on patient's age to complete this topic [place] [address] MEDICA[place] [facility] [place] [address] [facility] Care Teams Automation Driver Relationship Specialty Start Date End Date Neli Penny MD [address] [place], [place] [id number] PCP - General 09/10/17
--- OUTSIDE RECORDS SUMMARY | 2024-08-12 14:07 | XMS_ITS | Clinical Summary ---
Author Organization [facility] Address [address] [place] [address] Care Team Providers Care Airport Shuttle Driver Name Role Phone Neil Penny MD Primary Care Provider [phone] Allergies No known active allergies Medications atorvastatin 40 MG tablet Take 1 tablet (40 mg total) by mouth nightly at bedtime. Active ferrous sulfate, 65 mg elemental, 325 (65 FE) MG tablet Take 1 tablet (325 mg total) by mouth every other day. 30 tablet 1 Active mirtazapine 7.5 MG Tab tablet Take 1 tablet (7.5 mg total) by mouth nightly at bedtime. Active albuterol (2.5 MG/3ML) 0.083% nebulizer solution Active buPROPion XL 150 MG 24 hr tablet 1 Active Cholecalciferol 50 MCG (2000 UT) Cap Take 1 capsule by mouth. Active Cobalamin Combinations (VITAMIN Y88-IVHAF ACID) 500-400 MCG Tab Take 1 tablet by mouth. Active tiotropium (SPIRIVA HANDIHALER) 18 MCG inhalation capsule Spiriva with HandiHaler 18 mcg and inhalation capsules Inhale by inhalation route. Active fluticasone propionate (FLONASE) 50 MCG/ACT nasal spray fluticasone propionate 50 mcg/actuation nasal spray,suspensio n USE 2 SPRAY(S) IN EACH NOSTRIL ONCE DAILY Active enoxaparin (LOVENOX) 30 MG/0.3ML Solution Prefilled Syringe Inject 0.3 mLs (30 mg total) into the skin daily. 2 Active omeprazole (PRILOSEC) 20 MG capsule Take 1 capsule (20 mg total) by mouth 2 (two) times a day. Active gabapentin (NEURONTIN) 100 MG capsule Take 1 capsule (100 mg total) by mouth nightly at bedtime. 30 capsule 2 Active carvedilol (COREG) 12.5 MG tablet Take 1 tablet (12.5 mg total) by mouth 2 (two) times daily. 60 tablet 2 Active cetirizine (ZYRTEC) 10 MG tablet Take 1 tablet (10 mg total) by mouth daily. 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) 04/19/2022 Disorder of shoulder 04/19/2022 Localized, primary osteoarthritis of shoulder re gion 04/19/2022 Ileus ([facility]) 04/14/2022 Acquired pes planus of both feet 01/06/2022 Diabetic peripheral neuropat hy associated with type 2 diabetes mellitus ([facility]) 01/06/2022 Gastric AVM 10/04/2021 Trochanteric bursitis of left hip 09/28/2021 Avascular necrosis of femoral head ([facility]) 05/23/2021 GI bleed not requiring more than 4 units of blood in 24 hours, ICU, or surgery 03/29/2021 GI bleed 03/28/2021 Chronic obstructive pulmonary disease ([facility]) 11/14/2020 Chronic neck pain 11/14/2020 Degeneration of lumbar intervertebral disc 11/14 Iron deficiency anemia 11/14/2020 Moderate smoker (20 or less per day) 11/14/2020 Osteoarthrosis 11/14/2020 Proteinuria 11/14/2020 Stage 3a chronic kidney disease 11/14/2020 Type 2 diabetes mellitus wit hout complication ([facility]) 11/14/2020 Diabetes mellitus ([facility]) 01/11/2017 Cardiovascular symptoms 12/17/2014 Chest pain 12/17/2014 Palpitations 12/17/2014 Primary hypertension 12/17/2014 Pure hypercholesterolemia 12/17/2014 Tobacco dependence syndrome 12/17/2014 Family History Medical History Relation Comments Cancer Father bone cancer Diabetes Mother Heart Disease Mother Relation Status Comments Father Mother Social History Tobacco Use Types Packs/Day Years Used Date Smoking Tobacco: Former Cigarettes 1 42 Smokeless Tobacco: Never Tobacco Cessation:Counseling Given: Not Answered Alcohol Use Standard Drinks/Week Comments Yes 5 (1 standard drink = 0.6 oz pur e alcohol) 4-6 5-6 days per week. Comments No Sex and Gender Information Value Date Recorded Sex Assigned at Not on file Legal Sex Female 8:12 PM CDT Gender Identity Female 08/07/2021 9:30 AM CDT Sexual Orientation Straight 08/07/2021 9: 30 AM CDT Last Filed Vital Signs Vital Sign Reading Time Taken Comments Blood Pressure 154/59 09/07/2022 12:30 PM CDT Pulse 67 09/07/2022 12:30 PM CDT Temperature 36.8 C (98.2 F) 09/07/2022 12:02 PM CDT Respiratory Rate 15 09/07/2022 12:30 PM CDT Oxygen Saturation 100% 09/07/2022 12:30 PM CDT Inhaled Oxygen Concentration - - Weight 44 kg (97 lb) 09/04/2022 3:40 PM CDT Height 154.9 cm (5' 1 ) 09/04/2022 3:40 PM CDT Body Mass Index 18.33 09/04/2022 3:40 PM CDT Plan of Treatment Health Maintenance Due Date Last Done Comments Cervical Cancer Screening Pap Smear (Age 30 to 64) Every 3 Years 1960 Kidney Health Evaluation 1960 Hemoglobin A1C 1960 Annual Physical 1963 Diabetes: Retinopathy Eye Exam 1978 Hepatitis C 1978 Cervical Cancer Screening Pap with HPV Testing (Age 30 to 64) Every 5 Years 1990 Cervical Cancer Screening with HPV 1990 Mammogram Screening 2000 Zoster Vaccines (1 of 2) 2010 Pneumococcal Vaccine: Pediatrics (0 to 5 Years) and At-Risk Patients (6 to 49 Years) (2 of 2 - PCV) 06/25/2018 06/25/2017 RSV Immunization or 60+ Years (1 - Risk 60-74 years 1-dose series) 2020 Lipid Panel 06/18/2023 06/18/2022, 12/21/2021 COVID-19 Vaccine ( season) 2023 08/11/2020, 07/14/2020 DTaP, Tdap and Td Vaccines (2 - Td or Tdap) 02/19/2027 02/19/2017 Colorectal Cancer Screening Colonoscopy (10 Years) 09/07/2032 09/07/2022, 09/07/2022, 03/15/2022, Additional history exists Colorectal Cancer Screening FIT/FOBT (1 Year) Discontinued 03/28/2021 Meningococcal B Vaccine Aged Out No l onger eligible based on patient's age to complete this topic Meningococcal Vaccine Aged Out No koko link eligible based on patient's age to complete this topic RSV Immunizations Under 20 Months Aged Out No longer eligible based on patient's age to complete this topic Goals Goal Patient Goal Type Associated Problems Recent Progress Patient-Stated? Author Patient will return to prior living situation and remain independent in ADLs upon discharge from hospital [facility] No Connie Cavazos RN Procedures Procedure Name Priority Date/Time Associated Diagnosis Comments COLONOSCOPY Routine 09/07/2022 9:54 AM CDT OCCULT BLOOD, FECES STAT 03/28/2021 4 :30 PM MILLING MACHINE SET UP OPERATOR from Last 3 Months or Most Recently Relevant to Health Maintenance Results * OCCULT BLOOD, FECES (03/28/2021 4:30 PM MILLING MACHINE SET UP OPERATOR) OCCULT BLOOD FECAL NEGATIVE 03/28/2021 5:21 PM MILLING MACHINE SET UP OPERATOR [facility] STOOL SPECIMEN / Unknown 03/28/2021 4:30 PM MILLING MACHINE SET UP OPERATOR us Karley LESLIE BODY FLUIDS AND STOOLS ORDERA BLES Final Result [facility] [address] [place] [address], [place] [phone] from Last 3 Months or Most Recently Relevant to Health Maintenance Insurance [employer] Advance Directives * Full Code (Latest Code Status on File) Date Activated Date Inactivated Comments 04/14/2022 4:37 PM 04/19/2022 11:04 PM * Full Code Date Activated Date Inactivated Comments 03/28/2021 7:37 PM 03/30/2021 2:20 PM Care Teams Airport Shuttle Driver Relationship Specialty Start Date End Date Neil Penny MD [address] [place] [address] PCP - General INTERNAL MEDICINE 03/28/21
--- OUTSIDE RECORDS SUMMARY | 2024-08-12 14:07 | XMS_ITS | CONTINUITY OF CARE DOCUMENT ---
Author Name radha dieudonnenaldo Address Unknown Organization [facility] Address [address] [place] [address] [address] [place] [address] Phone [phone] Care Team Providers Care Manager Proposal Name Role Phone Neil Yates MD Unavailable CHIP MELENDEZ MD Unavailable CHIP MELENDEZ MD Unavailable PROBLEMS Condition Status Date Provider Notes Diabetes mellitus active Neil Yates MD Chest pain-type to be determined active Andrea Yates MD Palpitations active Neil Yates MD Tobacco abuse active Neil Yates MD Hypercholesterolemia active Rekha San lder HTN essential active Neil Yates MD Other symptoms involving car diovascular system active Neil Yates MD ENCOUNTERS Date Type Provider Location Encounter Diag nosis - In-person encounter Office Visit Neil Yates MD [facility] - In-person encounter Office Visit Neil Yates MD [facility] Diabetes mellitus - In-person encounter Office Visit Neil Yates MD [facility] Other symptoms involving cardiovascular systemHTN essentialHypercholesterolemiaTobacco abusePalpitationsChest pain-type to be determined VITAL SIGNS Date Observation Value Provider Body Mass Index (Ratio) 21.79 kg/m2 Dariana Yates MD blood pressure, cuff size regular Ke rri Soila blood pressure, diastolic 84 mm[Hg] Ke rri Soila blood pressure, systolic 158 mm[Hg] Anitra ri Baljeetleidyjosse oxygen saturation, oximetry 92 % Rekha Sheehankateleidyjosse respiratory rate E&M 18 /min Rekha Jesus bangura pulse rate 90 /min Rekha [place] weight E&M 123 [lb_av] Rekha [place] height E&M 63 [in_i] Rekha Aguilacruz lala Body Mass Index (Ratio) 20.94 kg/m2 Dariana Yates MD blood pressure, resting Yes Miriam Kerr blood pressure, diastolic 80 mm[Hg] Milton Kerr blood pressure, systolic 135 mm[Hg] Vandana Kerr oxygen saturation, oximetry 96 % Valery Kerr respiratory rate E&M 18 /min Temitope Kerr pulse rate 80 /min Valery ugan weight E&M 118.2 [lb_av] Valery rivera height E&M 63 [in_i] Valery guan blood pressure, diastolic 86 mm[Hg] Milton Kerr blood pressure, systolic 152 mm[Hg] Vandana Kerr Body Mass Index (Ratio) 20.94 kg/m2 Miriam Kerr pulse rate 88 /min Valery guan oxygen saturation, oximetry 98 % Valery Kerr respiratory rate E&M 16 /min Temitope Kerr weight E&M 118.2 [lb_av] Valery rivera height E&M 63 [in_i] Valery Dain nson ALLERGIES No Known Drug Allergies RESULTS Date Observation Value Provider Reference Range Interpretation Location 2 magnesium, serum 2.2 mg/dL [facility] 1.6 - 2.6 2 free thyroxine index 8.0 ??g/dL [facility] 4.4 - 11.4 2 triiodothyronine uptake 1.0 TBI [facility] 0.8 - 1.3 2 thyroxine, serum, total 8.0 ??G/DL [facility] 4.5 - 11.7 2 thyroid stimulating hormone, serum 1.090 ?IU/ML [facility] 0.270 - 4.200 2 anion gap, serum 14.6 [facility] - 2 albumin/globulin ratio, serum 2.5 g/dL [facility] 1.1 - 2.5 High 2 globulin, serum 3.5 [facility] 2.3 - 3.8 2 urea nitrogen/creatinine ratio, serum 14.3 [facility] - 2 Estimated Glomerular Filtration Rate (calc) 92.7 (?) [facility] 59.0 - 2 chloride, serum 106.4 mmol/L [facility] 98.0 - 107.0 2 potassium, serum 4.3 mmol/L [facility] 3.5 - 5.1 2 sodium, serum 146.0 mmol/L [facility] 136.0 - 145.0 High 2 creatine, serum 0.7 mg/dL [facility] 0.5 - 0.9 2 carbon dioxide, venous blood 25.0 mmol/L [facility] 22.0 - 29.0 2 albumin, serum 4.5 g/dL [facility] 3.5 - 5.2 2 calcium, serum 9.9 mg/dL [facility] 8.6 - 10.2 2 aspartate aminotransferase (SGOT), serum 19.0 1/L [facility] 0.0 - 32.0 2 alkaline phosphatase, serum 108.0 1/L [facility] 40.0 - 130.0 2 alanine aminotransferase (SGPT), serum 14.0 1/L [facility] 0.0 - 33.0 2 protein, total, serum 8.0 g/dL [facility] 6.6 - 8.7 2 urea nitrogen, blood 10.0 mg/dL [facility] 6.0 - 20.0 2 Glucose Urine 96.0 mg/dL [facility] 74.0 - 99.0 2 bilirubin, serum, total 0.3 mg/dL [facility] 0.0 - 1.2 HISTORY OF MEDICATION USE Medication Status Instructions Dates Provider Indications Com ments COREG 25 MG ORAL TABLET active One tablet twice daily Neil Yates MD HYDROCHLOROTHIAZIDE 25 MG ORAL TABLET active ONE TAB DAILY Valery Kerr METFORMIN HCL 500 MG ORAL TABLET active once daily Valery Kerr TRAZODONE HCL TABLET completed 100 mg once daily - 10/09 Rekha Cm GABAPENTIN 300 MG ORAL CAPSULE active 3 times daily Valery Kerr EFFEXOR XR 37.5 MG ORAL CAPSULE EXTENDED RELEASE 24 HOUR active once daily Valery Kerr VITAMIN B-12 1000 MCG ORAL TABLET active One tablet a week Rekha Cm OLANZAPINE 5 MG ORAL TABLET active once daily Valery Kerr ATORVASTATIN CALCIUM 40 MG ORAL TABLET active once daily Valery Kerr ASPIRIN 325 MG ORAL TABLET active takes only when chest hurts Valery Kerr METOPROLOL TARTRATE 100 MG ORAL TABLET completed one tab. twice daily - Neil Yates MD SOCIAL HISTORY Date Observation Value Provider social history reviewed E&M revi ewed - no changes required Neil Yates MD alcohol use, average drinks per day 2 /d Rekha Cm alcohol use, type beer Rekha reyna smoking/tobacco cess ation, patient education and counseling yes Rekha Cm alcohol use yes Rekha reeves number of years as a smoker 35 a Rekha Bealer smoking history, tot al pack/day 2 Rekha Soila cigarette use yes Rekha Baljeetleidy josse smoking status current every day smoker Lupillo rothman Soila number of grandchildren Neil Yates MD U rodriguez Yates MD alcohol use, average drinks per day 2 /d Neil Yates MD alcohol use, type beer Neil munoz MD alcohol use yes Neil Yates MD social history reviewed E&M revi ewed - no changes required Neil Yates MD social history E&M Patient jun francisco smokes every day. Smoking History: P atient currently smokes every day. P atient has been counseled to quit. Neil Yates MD smoking/tobacco cess ation, patient education and counseling yes Valery Kerr number of years as a smoker 35 a Valery Kerr smoking history, tot al pack/day 2 Valery Kerr cigarette use yes Valery rivera smoking status current every day smoker Hermann Kerr social history E&M Patient jun francisco smokes every day. Smoking History: P atient currently smokes every day. P atient has been counseled to quit. Neil Yates MD social history reviewed E&M revi ewed - no changes required Neil Yates MD smoking/tobacco cess ation, patient education and counseling yes Neil Yates MD number of years as a smoker 35 a Valery Kerr smoking history, tot al pack/day 1 Valery Kerr cigarette use yes Valery rivera smoking status current every day smoker Parker Yates MD FAMILY HISTORY Family Member Condition Mother Family History of Di abetes: INSURANCE PROVIDERS Payer name Policy type / Coverage type [facility] [place] [employer] MEDICAID (2) Medicaid [id number] ADVANCE DIRECTIVES Name Date DISCUSSED - NO DECISION MADE TREATMENT PLAN Date Name Performer Cardiology Follow up - STNP:Continues on metformin. Neil Yates MD Cardiology Follow up - STNP:Continues on atorvastatin. Neil Yates MD Cardiology Follow up - STNP:Patient's blood pressure is elevated with pulse rate of 90bpm. Will change from metoprolol tartrate 100mg BID to Coreg 25mg BID. Patient is further advised to reduce her salt intake. Neil Yates MD Cardiology Follow up - STNP:Likely chest wall pain. Stress test showed normal perfusion. Echo shows normal LV size and systolic function with no wall motion abnormalities. Continues on ASA. Neil Yates MD Cardiology: B P today: 135/80 P rior BP: 152/86 (12/17/2014) Neil Yates MD Cardiology:The Patient was reenc ouraged to stop smoking. Neil Yates MD Cardiology Neil Yates MD Cardiology:Occassion ally lasts for days, continuously. Recommend adenosine stress test. Will also check echo to evaluate valves and heaart muscle. Neil Yates MD NEW:1 pack per day T he Patient was encouraged to stop smoking. Neil Yates MD NEW:BP 152/86 Neil Yates MD Date Name Complete Echo STR - Adenosine Holter Monitor 24 Hr MAGNESIUM THYROID PANEL WITH T SH, 3RD GENERATION COMPREHENSIVE METABO LIC PANEL W/EGFR Complete Echo HISTORY OF PROCEDURES Procedure Date Procedure Name Provider Procedure Notes S tatus SNOMED-CT: 628373732 Smoking Cessation Counseling Neil Yates MD completed ePrescribe - Check t his box if eRx is used Neil Yates MD completed SNOMED-CT: 732724256 [id number] Current Medications Documented Neil Yates MD completed Stress EKG Indra Breaux MD complete d Regadenoson, 4 units Neil Yates MD completed Cardiolite, 2 units Neil Yates MD completed SPECT Images Michael Keyes MD completed EKG Neil Yates MD completed SNOMED-CT: 788901751 [id number] Current Medications Documented Neil Yates MD completed EKG Neil Yates MD completed
--- OUTSIDE RECORDS SUMMARY | 2024-08-12 14:07 | XMS_ITS | Referral Summary ---
Author Organization [facility] Address [address] [place] [id number] Care Team Providers Care Safe Deposit Box Rental Clerk Name Role Phone Neil Penny MD Primary Care Provider Franck Flores MD Unavailable Encounters Date Type Department Care Team Description 05/27/2024 2:15 PM RF DESIGN ENGINEER Lab [facility] at [address] [address] Iron deficiency anemia, unspecified iron deficiency anemia type 05/27/2024 3:00 PM RF DESIGN ENGINEER Office Visit [facility] [address] [place] [address] [place] [phone] Franck Flores MD Iron deficiency anemia, unspecified iron deficiency anemia type (Primary Dx) from Last 3 Months Allergies No known active allergies Medications metFORMIN XR (GLUCOPHAGE XR) 500 mg 24 hr tablet Take 1 tablet (500 mg total) by mouth daily 2 Active omeprazole (PriLOSEC) 40 mg capsule Take 1 capsule (40 mg total) by mouth 2 (two) times a day 2 Active venlafaxine XR (EFFEXOR-XR) 37.5 mg 24 hr capsule 2 Active venlafaxine XR (EFFEXOR-XR) 75 mg 24 hr capsule 2 Active traMADoL (ULTRAM) 50 mg tablet 2 Active atorvastatin (LIPITOR) 40 mg tablet Take 1 tablet (40 mg total) by mouth daily 2 Active mirtazapine (REMERON) 7.5 mg tablet 2 Active carvediloL (COREG) 6.25 mg tablet Take 1 tablet (6.25 mg total) by mouth 2 Active hydroCHLOROthia zide (HYDRODIURIL) 25 mg tablet daily Active tiotropium (SPIRIVA) 18 mcg per inhalation capsule Spiriva with HandiHaler 18 mcg and inhalation capsules Inhale by inhalation route. 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 2-4 times a month 10/04/2021 Q2: How many drinks containi ng alcohol do you have on a typical day when you are drinking? 1 or 2 10/04/2021 Frequency of Binge Drinking Not on file 11/2021 Comments Unknown Sex and Gender Information Value Date Recorded Sex Assigned at Not on file Legal Sex Female 2:23 AM RF DESIGN ENGINEER Gender Identity Female 09/27/2022 1:07 PM CDT Sexual Orientation Not on file Last Filed Vital Signs Vital Sign Reading Time Taken Comments Blood Pressure 189/83 05/27/2024 3:23 PM RF DESIGN ENGINEER not ified rn Pulse 82 05/27/2024 3:23 PM RF DESIGN ENGINEER Temperature 37.1 C (98.8 F) 05/27/2024 3:23 PM RF DESIGN ENGINEER Respiratory Rate 18 05/27/2024 3:23 PM RF DESIGN ENGINEER Oxygen Saturation 97% 05/27/2024 3:23 PM RF DESIGN ENGINEER Inhaled Oxygen Concentration - - Weight 53.1 kg (117 lb) 05/27/2024 3:23 PM RF DESIGN ENGINEER Height 154.9 cm (5' 1 ) 10/09/2023 3:49 PM CDT Body Mass Index 22.11 10/09/2023 3:49 PM CDT Plan of Treatment Not on file Procedures Procedure Name Priority Date/Time Associated Diagnosis Comments DIFFERENTIAL AUTO Routine 05/27/2024 3:1 2 PM RF DESIGN ENGINEER Iron deficiency anemia, unspecified iron deficiency anemia type CBC WITH AUTO DIFFERENTIAL Routine 05/27/2024 3:12 PM RF DESIGN ENGINEER Iron deficiency anemia, unspecified iron deficiency anemia type FERRITIN Routine 05/27/2024 3:12 PM RF DESIGN ENGINEER Iron deficiency anemia, unspecified iron deficiency anemia type IRON PROFILE W/ IBC Routine 05/27/2024 3 :12 PM RF DESIGN ENGINEER Iron deficiency anemia, unspecified iron deficiency anemia type from Last 3 Months Results * Differential, auto (05/27/2024 3:12 PM RF DESIGN ENGINEER) Neutrophil abs 4.0 1.5 - 6.5 K/cumm Comment:Testing performed by : [address] [address] Imm gran abs 0.0 0.0 - 0.1 K/cumm [facility] Comment:Testing performed by : [address] [address] Lymphocyte abs 1.0 0.8 - 3.3 K/cumm [facility] Comment:Testing performed by : [address] [address] Monocyte abs 0.4 0.2 - 0.8 K/cumm [facility] Comment:Testing performed by : [address] [address] Eosinophil abs 0.1 0.0 - 0.5 K/cumm [facility] Comment:Testing performed by : [address] [address] Basophil abs 0.1 0.0 - 0.1 K/cumm [facility] Comment:Testing performed by : [address] [address] Neutrophil pct 70.7 % [facility] Comment: Interpretive Data Percent cell count reference ranges are not reported, since discordance with absolute values may lead to misinterpretation of CBC data. Current Interpretive Data was last revised on 2017. Testing performed by: [address] [address] Imm gran pct 0.4 % [facility] Comment: Interpretive Data Percent cell count reference ranges are not reported, since discordance with absolute values may lead to misinterpretation of CBC data. Current Interpretive Data was last revised on 2017. Testing performed by: [address] [address] Lymphocyte pct 18.3 % [facility] Comment: Interpretive Data Percent cell count reference ranges are not reported, since discordance with absolute values may lead to misinterpretation of CBC data. Current Interpretive Data was last revised on 2017. Testing performed by: [address] [address] Monocyte pct 7.2 % [facility] Comment: Interpretive Data Percent cell count reference ranges are not reported, since discordance with absolute values may lead to misinterpretation of CBC data. Current Interpretive Data was last revised on 2017. Testing performed by: [address] [address] Eosinophil pct 2.5 % [facility] Comment: Interpretive Data Percent cell count reference ranges are not reported, since discordance with absolute values may lead to misinterpretation of CBC data. Current Interpretive Data was last revised on 2017. Testing performed by: [address] [address] Basophil pct 0.9 % [facility] Comment: Interpretive Data Percent cell count reference ranges are not reported, since discordance with absolute values may lead to misinterpretation of CBC data. Current Interpretive Data was last revised on 2017. Testing performed by: [address] [address] Blood 05/27/2024 3:12 PM RF DESIGN ENGINEER 05/27/2024 3:14 PM RF DESIGN ENGINEER us Franck Flores MD LAB BLOOD ORDERABLES Fi nal Result [facility] [address] [facility] [place] [address] * Iron profile w/ IBC (05/27/2024 3:12 PM RF DESIGN ENGINEER) [facility] Iron 92 35 - 145 mcg/dL Comment:Testing performed by : [address] [address] TIBC 355 250 - 400 mcg/dL [facility] SPANN Comment:Testing performed by : [address] [address] Transferrin saturation 26 20 - 50 % [facility] SPANN Comment:Testing performed by : [address] [address] Blood 05/27/2024 3:12 PM RF DESIGN ENGINEER 05/27/2024 4:43 PM RF DESIGN ENGINEER Franck Flores MD LAB BLOOD ORDERABLES Fi nal Result Performing Organization Address City/State/[facility] Co de Phone Number [facility] [address] [facility] [facility] [place] [address] * (ABNORMAL) CBC with auto differential (05/27/2024 3:12 PM RF DESIGN ENGINEER) [facility] WBC 5.7 3.8 - 9.9 K/cumm Comment:Testing performed by : [address] [address] Hgb 11.8(L) 11.9 - 15.5 g/dL [facility] SPANN Comment:Testing performed by : [address] [address] Hct 34.6(L) 35.6 - 45.5 % [facility] SPANN Comment:Testing performed by : [address] [address] Plt 369 150 - 400 K/cumm [facility] SPANN Comment:Testing performed by : [address] [address] MPV 8.5(L) 9.1 - 12.3 fL [facility] SPANN Comment:Testing performed by : [address] [address] RBC 4.04 3.90 - 5.20 M/cumm [facility] Comment:Testing performed by : [address] [address] MCV 85.6 81.3 - 96.4 fL [facility] Comment:Testing performed by : [address] [address] MCH 29.2 27.1 - 33.3 pg [facility] SPANN Comment:Testing performed by : [address] [address] MCHC 34.1 32.3 - 35.7 g/dL [facility] Comment:Testing performed by : [address], [address] RDW CV 13.4 11.1 - 14.9 % [facility] Comment:Testing performed by : [address] [address] RDW SD 41.6 35.7 - 48.1 fL [facility] Comment:Testing performed by : [address], [address] NRBC abs 0.00 0.00 - 0.01 K/cumm [facility] Comment:Testing performed by : [address], [address] Blood 05/27/2024 3:12 PM RF DESIGN ENGINEER 05/27/2024 3:14 PM RF DESIGN ENGINEER Franck Flores MD LAB BLOOD ORDERABLES Fi nal Result [facility] [address] [facility] Department of Laboratories [place], [place] [id number] * Ferritin (05/27/2024 3:12 PM RF DESIGN ENGINEER) [facility] Ferritin 57 15 - 150 ng/mL Comment:Testing performed by : [address] [address] Blood 05/27/2024 3:12 PM RF DESIGN ENGINEER 05/27/2024 4:43 PM RF DESIGN ENGINEER Franck Flores MD LAB BLOOD ORDERABLES nal Result [facility] [address] [facility] Department [place] [address] from Last 3 Months Insurance [facility] Care Teams Safe Deposit Box Rental Clerk Relationship Specialty Start Date End Date Neil Penny MD [facility] [address] PCP - General Internal Medicine 08/30/21 Franck Flores MD [address] [place] [address] MEDICAL ONCOLOGY, [place] [address] Medical Oncologist/Consumer Marketing Analyst Hematology and Oncology 12/25/22
--- OUTSIDE RECORDS SUMMARY | 2024-08-12 14:07 | XMS_ITS | Clinical Summary ---
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 Iron deficiency anemia 09/22/2021 Encounters Date Type Department Care Team Description 05/27/2024 3:00 PM CHEMICAL PROCESSING SUPERVISOR Office Visit [facility] Oncology [facility] [facility] [address] [place] [id number] Franck Flores MD Iron deficiency anemia, unspecified iron deficiency anemia type (Primary Dx) 05/27/2024 2:15 PM CHEMICAL PROCESSING SUPERVISOR Lab [facility] at [address] [address] Iron deficiency anemia, unspecified iron deficiency anemia type from Last 3 Months Surgical History Surgery Date Site/Laterality Comments TUBAL LIGATION NECK SURGERY 11/20/2023 Medical History Medical History Date Comments Diabetes mellitus (HCC) Hypercholesteremia Hypertension Chronic kidney disease Peptic ulceration Anemia 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 Family History Medical History Relation Name Comments Bone cancer Father Relation Name Status Comments Father Social History Tobacco Use Types Packs/Day Years [...] on file Legal Sex Female 2:23 AM CHEMICAL PROCESSING SUPERVISOR Gender Identity Female 09/27/2022 1:07 PM CDT Sexual Orientation Not on file Obstetrics History Last Filed Vital Signs Vital Sign Reading Time Taken Comments Blood Pressure 189/83 05/27/2024 3:23 PM CHEMICAL PROCESSING SUPERVISOR not ified rn Pulse 82 05/27/2024 3:23 PM CHEMICAL PROCESSING SUPERVISOR Temperature 37.1 C (98.8 F) 05/27/2024 3:23 PM CHEMICAL PROCESSING SUPERVISOR Respiratory Rate 18 05/27/2024 3:23 PM CHEMICAL PROCESSING SUPERVISOR Oxygen Saturation 97% 05/27/2024 3:23 PM CHEMICAL PROCESSING SUPERVISOR Inhaled Oxygen Concentration - - Weight 53.1 kg (117 lb) 05/27/2024 3:23 PM CHEMICAL PROCESSING SUPERVISOR Height 154.9 cm (5' 1 ) 10/09/2023 3:49 PM CDT Body Mass Index 22.11 10/09/2023 3:49 PM CDT Plan of Treatment Health Maintenance Due Date Last Done Comments Breast Cancer Screening-Mammogram 1960 Cervical Cancer Screening 1960 Colon Cancer Screening-Colonoscopy 1960 Depression Screening 1960 Hepatitis C Screening 1960 DTaP/Tdap/Td Vaccine (1 - Tdap) 1971 Hepatitis B Screening 1978 Regular Well Visit/Exam 18-64 1978 Pneumococcal vaccine <65 (1 of 2 - PCV) 1979 Zoster Vaccine (1 of 2) 2010 Covid-19 Vaccine ( season) 2023 07/05/2021, 08/11/2020, 07/14/2020 Influenza Vaccine (Season Ended) 2024 Procedures Procedure Name Priority Date/Time Associated Diagnosis Comments DIFFERENTIAL AUTO Routine 05/27/2024 3:1 2 PM CHEMICAL PROCESSING SUPERVISOR Iron deficiency anemia, unspecified iron deficiency anemia type CBC WITH AUTO DIFFERENTIAL Routine 05/27/2024 3:12 PM CHEMICAL PROCESSING SUPERVISOR Iron deficiency anemia, unspecified iron deficiency anemia type FERRITIN Routine 05/27/2024 3:12 PM CHEMICAL PROCESSING SUPERVISOR Iron deficiency anemia, unspecified iron deficiency anemia type IRON PROFILE W/ IBC Routine 05/27/2024 3 :12 PM CHEMICAL PROCESSING SUPERVISOR Iron deficiency anemia, unspecified iron deficiency anemia type from Last 3 Months Results * Differential, auto (05/27/2024 3:12 PM CHEMICAL PROCESSING SUPERVISOR) Neutrophil abs 4.0 1.5 - 6.5 K/cumm Comment:Testing performed by : [facility], [address] [place] [address], [place]., [address] Imm gran abs 0.0 0.0 - 0.1 K/cumm [facility] Comment:Testing performed by : [address] [address] Lymphocyte abs 1.0 0.8 - 3.3 K/cumm [facility] Comment:Testing performed by : [address] [address] Monocyte abs 0.4 0.2 - 0.8 K/cumm [facility] Comment:Testing performed by : [address] [address] Eosinophil abs 0.1 0.0 - 0.5 K/cumm [facility] Comment:Testing performed by : [address] [address] Basophil abs 0.1 0.0 - 0.1 K/cumm [facility] Comment:Testing performed by : [address] [address] Neutrophil pct 70.7 % [facility] Comment: Interpretive Data Percent cell count reference ranges are not reported, since discordance with absolute values may lead to misinterpretation of CBC data. Current Interpretive Data was last revised on 2017. Testing performed by: [address] [address] Imm gran pct 0.4 % [facility] Comment: Interpretive Data Percent cell count reference ranges are not reported, since discordance with absolute values may lead to misinterpretation of CBC data. Current Interpretive Data was last revised on 2017. Testing performed by: [address] [address] Lymphocyte pct 18.3 % [facility] Comment: Interpretive Data Percent cell count reference ranges are not reported, since discordance with absolute values may lead to misinterpretation of CBC data. Current Interpretive Data was last revised on 2017. Testing performed by: [address] [address] Monocyte pct 7.2 % [facility] Comment: Interpretive Data Percent cell count reference ranges are not reported, since discordance with absolute values may lead to misinterpretation of CBC data. Current Interpretive Data was last revised on 2017. Testing performed by: [address] [address] Eosinophil pct 2.5 % [facility] Comment: Interpretive Data Percent cell count reference ranges are not reported, since discordance with absolute values may lead to misinterpretation of CBC data. Current Interpretive Data was last revised on 2017. Testing performed by: [address] [address] Basophil pct 0.9 % [facility] Comment: Interpretive Data Percent cell count reference ranges are not reported, since discordance with absolute values may lead to misinterpretation of CBC data. Current Interpretive Data was last revised on 2017. Testing performed by: [address] [address] Blood 05/27/2024 3:12 PM CHEMICAL PROCESSING SUPERVISOR 05/27/2024 3:14 PM CHEMICAL PROCESSING SUPERVISOR Franck Flores MD LAB BLOOD ORDERABLES Fi nal Result Performing Organization Address [facility] Co de Phone Number [address] [place] [address] * Iron profile w/ IBC (05/27/2024 3:12 PM CHEMICAL PROCESSING SUPERVISOR) Iron 92 35 - 145 mcg/dL Comment:Testing performed by : [address] [address] TIBC 355 250 - 400 mcg/dL [facility] Comment:Testing performed by : [address] [address] Transferrin saturation 26 20 - 50 % [facility] Comment:Testing performed by : [address] [address] Blood 05/27/2024 3:12 PM CHEMICAL PROCESSING SUPERVISOR 05/27/2024 4:43 PM CHEMICAL PROCESSING SUPERVISOR Franck Flores MD LAB BLOOD ORDERABLES Fi nal Result Performing Organization Address [facility]/ZIP Co de Phone Number [address] [place] [address] * (ABNORMAL) CBC with auto differential (05/27/2024 3:12 PM CHEMICAL PROCESSING SUPERVISOR) [facility] WBC 5.7 3.8 - 9.9 K/cumm Comment:Testing performed by : [address], [address] Hgb 11.8(L) 11.9 - 15.5 g/dL [facility] Comment:Testing performed by : [address], [address] Hct 34.6(L) 35.6 - 45.5 % [facility] Comment:Testing performed by : [address], [address] Plt 369 150 - 400 K/cumm [facility] Comment:Testing performed by : [address], [address] MPV 8.5(L) 9.1 - 12.3 fL [facility] Comment:Testing performed by : [address], [address] RBC 4.04 3.90 - 5.20 M/cumm [facility] Comment:Testing performed by : [address], [address] MCV 85.6 81.3 - 96.4 fL [facility] Comment:Testing performed by : [address], [address] MCH 29.2 27.1 - 33.3 pg [facility] Comment:Testing performed by : [address], [address] MCHC 34.1 32.3 - 35.7 g/dL [facility] Comment:Testing performed by : [address], [address] RDW CV 13.4 11.1 - 14.9 % [facility] Comment:Testing performed by : [address], [address] RDW SD 41.6 35.7 - 48.1 fL [facility] Comment:Testing performed by : [address], [address] NRBC abs 0.00 0.00 - 0.01 K/cumm [facility] Comment:Testing performed by : [facility], [address] [place] [address]., [address] Blood 05/27/2024 3:12 PM CHEMICAL PROCESSING SUPERVISOR 05/27/2024 3:14 PM CHEMICAL PROCESSING SUPERVISOR Franck Flores MD LAB BLOOD ORDERABLES Fi nal Result Performing Organization Address [facility] Co de Phone Number [facility] [address] [facility] [place] [employer] [place] [address] * Ferritin (05/27/2024 3:12 PM CHEMICAL PROCESSING SUPERVISOR) Ferritin 57 15 - 150 ng/mL Comment:Testing performed by : [facility], [address] [place] [address]., [address] Blood 05/27/2024 3:12 PM CHEMICAL PROCESSING SUPERVISOR 05/27/2024 4:43 PM CHEMICAL PROCESSING SUPERVISOR Franck Flores MD LAB BLOOD ORDERABLES Fi nal Result Performing Organization Address [facility] Co de Phone Number [address] [address] from Last 3 Months Insurance [facility] Care Teams Boat Rigger Relationship Specialty Start Date End Date Neil Penny MD [address] [place] [id number] PCP - General Internal Medicine 08/30/21 Franck Flores MD [address] [place] [address] MEDICAL ONCOLOGY, [address] [address] Medical Oncologist/Box Printing Machine Operator Hematology and Oncology 12/25/22
--- OUTSIDE RECORDS SUMMARY | 2024-08-12 14:07 | XMS_ITS | Clinical Summary ---
Author Organization [facility] Address [address] [address] Care Team Providers Care Hall Supervisor Name Role Phone Neil Penny MD Primary Care Provider [phone] Allergies No known active allergies Medications albuterol (2.5 MG/3ML) 0.083% nebulizer solution by Other route every 4 (four) hours Active gabapentin (NEURONTIN) 100 MG capsule Take 100 mg by mouth at bed time Active omeprazole (PriLOSEC) [address] capsule Take 20 mg by mouth 1 (one) time each day Do not crush or chew. Active atorvastatin (LIPITOR) 40 MG tablet Take 1 tablet (40 mg total) by mouth 1 (one) time each day 30 tablet 2 1 12/27/19 29 Active fluticasone (FLONASE) 50 MCG/ACT nasal spray Administer 1 spray into each nostril if needed for rhinitis Active mirtazapine (REMERON) 7.5 MG tablet Take 7.5 mg by mouth every night Active cetirizine (ZyrTEC) 10 MG tablet Take 10 mg by mouth 1 (one) time each day Active buPROPion XL (WELLBUTRIN XL) 150 MG 24 hr tablet Take 150 mg by mouth 1 (one) time each day Do not crush, chew, or split. Active tiotropium (SPIRIVA) 18 MCG per inhalation capsule Place 1 capsule into inhaler and inhale 1 (one) time each day Active Cobalamin Combinations (Vitamin I80-Svpnu Acid) 500-400 MCG tablet Take 1 tablet by mouth 1 (one) time each day Active hydroCHLOROthiazi de (MICROZIDE) 12.5 MG capsule Take 12.5 mg by mouth 1 (one) time each day Active lisinopril 5 MG tablet Take 1 tablet (5 mg total) by mouth at bed time 30 tablet 3 Active Active Problems Problem Noted Date Diagnosed Date Anemia due to blood loss 10/23/2022 Stage 3a chronic kidney disease 11/14/2020 Chronic neck pain 11/14/2020 Chronic obstructive pulmonary disease 11/14/2020 Degeneration of lumbar intervertebral disc 11/14 Iron deficiency anemia 11/14/2020 Moderate smoker (20 or less per day) 11/14/2020 Osteoarthritis 11/14/2020 Proteinuria 11/14/2020 Type 2 diabetes mellitus without complication Essential hypertension 12/17/2014 Immunizations Immunization Administration Dates Next Due Influenza TIV (IM) 02/27/2018 Family History Medical History Relation Comments Diabetes Mother Heart disease Mother Hypertension Mother Kidney disease Mother Hypertension Sibling Relation Status Comments Father Mother Sibling Social History Tobacco Use Types Packs/Day Years Used Date Smoking Tobacco: Former Cigarettes Q uit: 11/2021 Smokeless Tobacco: Never Tobacco Cessation:Counseling Given: Not Answered Alcohol Use Standard Drinks/Week Comments Yes 0 (1 standard drink = 0.6 oz pure alcohol) Alcoholic Drinks/day: Occasional social drink Comments Unknown Sex and Gender Information Value Date Recorded Sex Assigned at Female 06/12/2022 11:21 AM EST Legal Sex Female 2:50 PM EDT Gender Identity Female 06/12/2022 11:21 AM EST Sexual Orientation Straight 06/12/2022 11 :21 AM EST Last Filed Vital Signs Vital Sign Reading Time Taken Comments Blood Pressure 180/76 02/26/2023 10:39 AM CDT Pulse 70 02/26/2023 10:39 AM CDT Temperature 35.9 C (96.7 F) 02/26/2023 10:39 AM CDT Respiratory Rate 18 02/26/2023 10:39 AM CDT Oxygen Saturation 99% 02/26/2023 10:39 AM CDT Inhaled Oxygen Concentration - - Weight 47.6 kg (105 lb) 02/26/2023 10:39 AM CDT Height 152.4 cm (5') 02/26/2023 10:39 AM CDT Body Mass Index 20.51 02/26/2023 10:39 AM CDT Plan of Treatment Health Maintenance Due Date Last Done Comments Breast Cancer Screening 1960 Pneumococcal Vaccine: 50+ Years (1 of 2 - PCV) 1979 Colorectal Cancer Screening: Annual FOBT 2009 Colorectal Cancer Screening: Colonoscopy 2009 Colorectal Cancer Screening: Sigmoidoscopy 2009 Diabetes: Ophthalmology Exam 09/22/2020 Diabetes: Pedal Pulse Checked 09/22/2020 Diabetes: Sensory Foot Exam 09/22/2020 Diabetes: Visual Foot Exam 09/22/2020 Diabetes: Hemoglobin A1C 05/28/2023 023, 10/19/2022, 06/18/2022, Additional history exists Influenza Vaccine (Season Ended) 2024 02/27/2018 Hepatitis B Vaccine Aged Out No longe r eligible based on patient's age to complete this topic Procedures Procedure Name Priority Date/Time Associated Diagnosis Comments HEMOGLOBIN A1C Routine 02/25/2023 Proteinuria, not otherwise specified Type 2 diabetes mellitus without complication (HCC) Stage 3a chronic kidney disease (HCC) Chronic obstructive pulmonary disease, not otherwise specified (HCC) Essential hypertension Iron deficiency anemia, not otherwise specified Anemia due to blood loss from Last 3 Months or Most Recently Relevant to Health Maintenance Results * Hemoglobin A1c (02/25/2023) Hemoglobin A1C 5.0 PRINT /EXTERNAL (NON-INTERFACE D LABS) Blood (Blood, Venous) 02/25/2023 Rachid Orourke MD LAB BLOOD ORDERABLES Final R esult PRINT/EXTERNAL (NON-INTERFACED LABS) from Last 3 Months or Most Recently Relevant to Health Maintenance Insurance [facility] ([email or web address] Care Teams Hall Supervisor Relationship Specialty Start Date End Date Neil Penny MD [address] [place] [address] PCP - General Internal Medicine 12/19/20
== END 2024-08-12 13:01 | disposition home or self-care (01) ==
PROVIDERS: PCP Family Medicine; Visit Provider Neurological Surgery
DX: M47.22 Other spondylosis with radiculopathy, cervical region (principal); M25.512 Pain in left shoulder; M50.30 Other cervical disc degeneration, unspecified cervical region; Z98.1 Arthrodesis status
CPT/HCPCS: 72040; 73030

== ENCOUNTER 2024-09-08 13:14 | Outpatient (CLI) | payer OTHER, SELFPAY ==
--- NOTE | ~2024-09-08 | MR_ITS ---
MRI of the cervical spine Clinical History: Arthrodesis Technique: Axial T2-weighted and gradient images, and sagittal T1-weighted, T2-weighted, and STIR andria ges were acquired. Findings: No acute fracture or subluxation identified. There is posterior fusion from C3 through C7. No suspicious bone marrow signal abnormality seen. At C2-C3, there is no disc bulge or herniation. No spinal canal stenosis, cord compression, or neural foraminal narrowing. At C3-C4, there is minimal disc osteophyte convex. No canal stenosis, cord compression, or definite n eural foraminal narrowing. At C4-C5, there is mild degenerative thinning. No spinal canal stenosis, cord compression, or neural foraminal narrowing evident. At C5-C6, there is no spinal canal stenosis, cord compression, or definite neural foraminal narrowing . At C6-C7, there is moderate degenerative disc change. No definite disc bulge or herniation. No canal stenosis, cord compression, or definite neural foraminal narrowing. There is posterior decompression from C4 through C6. No abnormal signal seen in the spinal cord. Paravertebral soft tissues are otherwise unremarkable. Impression: Postoperative change from C3 through C7, as detailed above. Mild degenerative spondylosis overall currently. No canal stenosis or cord compression. Reviewed, dictated and finalized at location . Impression: Postoperative change from C3 through C7, as detailed above. Mild degenerative spondylosis overall currently. No canal stenosis or cord comp ression.
--- NOTE | ~2024-09-08 | CT_ITS ---
Noncontrast CT scan of the cervical spine Technique: Multiple contiguous axial [address] images of the cervical spine were obtained and rec onstructed in 2D sagittal and coronal planes on the acquisition scanner. Dose reduction technique was used on this scan by utilizing automated exposure control, adjustment of the mA and/or kV according to patient size. The dose-length product (DLP) was 128.73 mGy-cm. Clinical History: Arthrodesis Findings: There is mild reversal of normal cervical lordosis. There is posterior fusion hardware from C4 through C7, with bilateral rods and transpedicular screws present. No acute fracture or subluxati on identified. There is multilevel moderate degenerative disc narrowing throughout the cervical spine . There are anterior osteophytes are C4-C7, suggestive of DISH. There has been posterior decompressio n at C4, C5, and C6. At C2-C3, there is probable mild disc bulge. No definite canal stenosis, cord compression, or neural foraminal narrowing. At C3-C4, there is no definite canal stenosis. Possible mild left neural foraminal narrowing. Right n eural foramen preserved. At C4-C5, there is no definite canal stenosis. Probable minimal neural foraminal narrowing bilaterall y. At C5-C6, there is no canal stenosis. Neural foramina appear preserved. At C6-C7, there is no definite disc bulge or herniation. No spinal canal stenosis, cord compression, or definite neural foraminal narrowing. Paravertebral soft tissues are unremarkable. Impression: No fracture or subluxation of the cervical spine. Posterior fusion from C4 to C7 with posterior decompression from C4 through C6. Mild degenerative spondylosis overall, as detailed above. Reviewed, dictated and finalized at [facility]. Impression: No fracture or subluxation of the cervical spine. Posterior fusion from C4 to C7 with posterior decompression from C4 through C6. Mild degenerative spondylosis overall, as detailed above.
--- OUTSIDE RECORDS SUMMARY | 2024-09-08 13:34 | XMS_ITS | CONTINUITY OF CARE DOCUMENT ---
Author Name radha dieudonnenaldo Address Unknown Organization [facility] Address [address] [place] [address] [address] [place] [address] Phone [phone] Care Team Providers Care Program Development Manager Name Role Phone Neil Yates MD Unavailable CHIP MELENDEZ MD Unavailable HCIP MELENDEZ MD Unavailable PROBLEMS Condition Status Date [...] In-person encounter Office Visit Neil Yates MD [facility] - In-person encounter Office Visit Neil Yates MD [facility] Diabetes mellitus - In-person encounter Office Visit Neil Yates MD [facility] Other symptoms involving cardiovascular systemHTN essentialHypercholesterolemiaTobacco [...] Temitope Kerr pulse rate 80 /min Valery guan weight E&M 118.2 [lb_av] Valery rivera height [...] Payer name Policy type / Coverage type [facility] ID [employer] MEDICAID (2) Medicaid [id number] ADVANCE DIRECTIVES Name Date DISCUSSED - NO [...] Name Provider Procedure Notes S tatus SNOMED-CT: 039699094 Smoking Cessation Counseling Neil Yates MD completed ePrescribe - Check t his box if eRx is used Neil Yates MD completed SNOMED-CT: [id number] Current Medications Documented Neil Yates MD completed Stress EKG Indra Breaux MD complete d Regadenoson, 4 units Neil Yates MD completed Cardiolite, 2 units Neil Yates MD completed SPECT Images Michael Keyes MD completed EKG Neil Yates MD completed SNOMED-CT: [id number] Current Medications Documented Neil Yates MD completed EKG Neil Yates MD completed
--- OUTSIDE RECORDS SUMMARY | 2024-09-08 13:34 | XMS_ITS | Encounter Summary ---
Author Organization [facility] Healthcare Address [address] [place] [address] Care Team Providers Care Industry Consultant Name Role Phone Neil Penny MD Primary Care Provider Franck Flores MD Unavailable [phone] Encounter Details Date Type Department Care Team (Late st Contact Info) Description 09/07/2024 1:00 PM CDT Lab [facility] at [address] [address] Iron deficiency anemia, unspecified iron deficiency anemia type Social History Tobacco Use Types Packs/Day Years Used Date Smoking Tobacco: Former Cigarettes Q uit: 11/2021 Smokeless Tobacco: Never AUDIT-C Answer Date Recorded Q1: How often [...] on file 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 Gender Identity Female 09/27/2022 1:07 PM CDT Sexual Orientation Not on file documented as of this encounter Plan of Treatment Not on file documented as of this encounter Procedures Procedure Name Priority Date/Time Associated Diagnosis Comments BLOOD SMEAR REVIEW Routine 09/07/2024 1: 36 PM CDT Iron deficiency anemia, unspecified iron deficiency anemia type DIFFERENTIAL AUTO Routine 09/07/2024 1:3 6 PM CDT Iron deficiency anemia, unspecified iron deficiency anemia type IRON PROFILE W/ IBC Routine 09/07/2024 1 :36 PM CDT Iron deficiency anemia, unspecified iron deficiency anemia type CBC WITH AUTO DIFFERENTIAL Routine 09/07/2024 1:36 PM CDT Iron deficiency anemia, unspecified iron deficiency anemia type FERRITIN Routine 09/07/2024 1:36 PM CDT Iron deficiency anemia, unspecified iron deficiency anemia type documented in this encounter Results * (ABNORMAL) Blood smear review (09/07/2024 1:36 PM CDT) Pathologist [facility] RBC morphology Consistent with RBC Indicies Comment:Testing performed by : [address] [address] Platelet estimate Increased(A) AVERY SPANN Comment:Testing performed by : [address] [address] Blood 09/07/2024 1:36 PM CDT 09/07/2024 1:38 PM CDT Franck Flores MD LAB BLOOD ORDERABLES Fi nal Result AVERY [address] [facility] [place] [address] * Differential, auto (09/07/2024 1:36 PM CDT) Neutrophil abs 5.67 1.50 - 6.50 K/cumm Comment:Testing performed by : [address] [address] Imm gran abs 0.03 0.00 - 0.10 K/cumm AVERY SPANN Comment:Testing performed by : [address] [address] Lymphocyte abs 0.85 0.80 - 3.30 K/cumm AVERY Comment:Testing performed by : [address] [place]., [address] Monocyte abs 0.52 0.20 - 0.80 K/cumm [facility] Comment:Testing performed by : [address] [address] Eosinophil abs 0.07 0.00 - 0.50 K/cumm [facility] Comment:Testing performed by : [address] [address] Basophil abs 0.04 0.00 - 0.10 K/cumm [facility] Comment:Testing performed by : [address] [address] Neutrophil pct 79.0 % [facility] Comment: Interpretive Data Percent cell count reference ranges are not reported, since discordance with absolute values may lead to misinterpretation of CBC data. Current Interpretive Data was last revised on 2017. Testing performed by: [address] [address] Imm gran pct 0.4 % [facility] Comment: Interpretive Data Percent cell count reference ranges are not reported, since discordance with absolute values may lead to misinterpretation of CBC data. Current Interpretive Data was last revised on 2017. Testing performed by: [address] [address] Lymphocyte pct 11.8 % [facility] Comment: Interpretive Data Percent cell count reference ranges are not reported, since discordance with absolute values may lead to misinterpretation of CBC data. Current Interpretive Data was last revised on 2017. Testing performed by: [address] [address] Monocyte pct 7.2 % [facility] Comment: Interpretive Data Percent cell count reference ranges are not reported, since discordance with absolute values may lead to misinterpretation of CBC data. Current Interpretive Data was last revised on 2017. Testing performed by: [address] [address] Eosinophil pct 1.0 % [facility] Comment: Interpretive Data Percent cell count reference ranges are not reported, since discordance with absolute values may lead to misinterpretation of CBC data. Current Interpretive Data was last revised on 2017. Testing performed by: [address] [address] Basophil pct 0.6 % AVERY SPANN Comment: Interpretive Data Percent cell count reference ranges are not reported, since discordance with absolute values may lead to misinterpretation of CBC data. Current Interpretive Data was last revised on 2017. Testing performed by: [address] [address] Blood 09/07/2024 1:36 PM CDT 09/07/2024 1:38 PM CDT Franck Flores MD LAB BLOOD ORDERABLES Fi nal Result Performing Organization Address [facility] Co de Phone Number [address] [place] [address] * (ABNORMAL) Iron profile w/ IBC (09/07/2024 1:36 PM CDT) Iron 12(L) 35 - 145 mcg/dL Comment:Testing performed by : [address] [address] TIBC 389 250 - 400 mcg/dL AVERY Comment:Testing performed by : [address] [address] Transferrin saturation 3(L) 20 - 50 % AVERY SPANN Comment:Testing performed by : [address] [address] Blood 09/07/2024 1:36 PM CDT 09/07/2024 4:27 PM CDT Franck Flores MD LAB BLOOD ORDERABLES Fi nal Result Performing Organization Address [facility] Co de Phone Number [address] [place] [address] * Ferritin (09/07/2024 1:36 PM CDT) Ferritin 16 15 - 150 ng/mL Comment:Testing performed by : [address] [address] Blood 09/07/2024 1:36 PM CDT 09/07/2024 4:27 PM CDT Franck Flores MD LAB BLOOD ORDERABLES Fi nal Result AVERY SPANN [address] [facility] Department [place] [address] * (ABNORMAL) CBC with auto differential (09/07/2024 1:36 PM CDT) WBC 7.18 3.80 - 9.90 K/cumm Comment:Testing performed by : [address] [address] Hgb 5.0(C) 11.9 - 15.5 g/dL AVERY SPANN Comment: Repeated and Verified. This result has been called to Rosi Montero RN (secure chat) by [email or web address] on 09/07/2024 14:12:10, and has been read back. Testing performed by: [address] [address] Hct 16.6(L) 35.6 - 45.5 % AVERY SPANN Comment:Testing performed by : [address] [address] Plt 429(H) 150 - 400 K/cumm AVERY SPANN Comment:Testing performed by : [address] [address] MPV 8.8(L) 9.1 - 12.3 fL AVERY SPANN Comment:Testing performed by : [address] [address] RBC 2.17(L) 3.90 - 5.20 M/cumm AVERY SPANN Comment:Testing performed by : [address] [address] MCV 76.5(L) 81.3 - 96.4 fL AVERY SPANN Comment:Testing performed by : [address] [address] MCH 23.0(L) 27.1 - 33.3 pg AVERY SPANN Comment:Testing performed by : [address] [address] MCHC 30.1(L) 32.3 - 35.7 g/dL AVERY Comment:Testing performed by : [address] [address] RDW CV 17.2(H) 11.1 - 14.9 % AVERY Comment:Testing performed by : [address] [address] RDW SD 48.4(H) 35.7 - 48.1 fL AVERY Comment:Testing performed by : [address] [address] NRBC abs 0.00 0.00 - 0.01 K/cumm AVERY Comment:Testing performed by : [address] [address] ANC Prelim 5.67 1.50 - 6.50 K/cumm AVERY Comment: Interpretive Data The rapid ANC is a preliminary automated count and may vary from the final ANC (Neut Abs) reported in the WBC differential that follows. Current interpretive data was last revised 2024. Testing performed by: [address] [address] Blood 09/07/2024 1:36 PM CDT 09/07/2024 1:38 PM CDT us Franck Flores MD LAB BLOOD ORDERABLES Fi nal Result [facility] [address] [facility] Department [place] [address] documented in this encounter Visit Diagnoses Diagnosis Iron deficiency anemia, unspecified iron deficiency anemia type documented in this encounter Orders Appointment Requests Count Last Ordered Date Fi rst Ordered Date ONCBCN LAB APPOINTMENT 1 09/07/2024 documented in this encounter Care Teams Industry Consultant Relationship Specialty Start Date End Date Neil Penny MD [address] [place] [address] PCP - General Internal Medicine 08/30/21 Franck Flores MD [address] [place] [address] MEDICAL ONCOLOGY, [place] [id number] Medical Oncologist/Collar Setter [place] H[facility] Oncology 12/25/22 documented as of this encounter
--- OUTSIDE RECORDS SUMMARY | 2024-09-08 13:34 | XMS_ITS | Encounter Summary ---
Author Organization [facility] Address [address] [place] [address] Phone Care Team Providers Care Book Author Name Role Phone Neil Penny MD Primary Care Provider Franck Flores MD Unavailable [phone] Encounter Details Date Type Department Care Team (Late st Contact Info) Description 09/07/2024 Telephone [facility] Oncology [facility] [address] [place] [phone] Alexia Montero RN Social History Tobacco Use Types Packs/Day Years [...] on file 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 Left message for patient to call back, She needs to go to ED. Called patient again and informed her to go to ED with hemoglobin of 5. Patient agreeable. documented in this encounter Plan of Treatment Not on file documented as of this encounter Visit Diagnoses Not on filedocumented in this encounter Care Teams Book Author Relationship Specialty Start Date End Date Neil Penny MD [facility] [address] PCP - General Internal Medicine 08/30/21 Franck Flores MD [address] [place] [address] MEDICAL ONCOLOGY, [address] [address] Medical Oncologist/Television Script Writer Hematology and Oncology 12/25/22 documented as of this encounter
--- OUTSIDE RECORDS SUMMARY | 2024-09-08 13:34 | XMS_ITS | Encounter Summary ---
Author Organization [facility] Address [address] [place] [address] Phone Care Team Providers Care Paver Layer Name Role Phone Neil Penny MD Primary Care Provider Franck Flores MD Unavailable [phone] Encounter Details Date Type Department Care Team (Late st Contact Info) Description 09/04/2024 Telephone [facility] Oncology [address] 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 Craving ice again. Will recheck labs on Saturday per patient request documented in this encounter Plan of Treatment Not on file documented as of this encounter Results * (ABNORMAL) Iron profile w/ IBC (09/07/2024 1:36 PM CDT) Iron 12(L) 35 - 145 mcg/dL Comment:Testing performed by : [address] [address] TIBC 389 250 - 400 mcg/dL AVERY Comment:Testing performed by : [address] [address] Transferrin saturation 3(L) 20 - 50 % AVERY Comment:Testing performed by : [address] [address] Blood 09/07/2024 1:36 PM CDT 09/07/2024 4:27 PM CDT Franck Flores MD LAB BLOOD ORDERABLES Fi nal Result [facility] [address] [facility] Department of Laboratories [place], [place] [id number] * Ferritin (09/07/2024 1:36 PM CDT) Ferritin 16 15 - 150 ng/mL Comment:Testing performed by : [address] [address] Blood 09/07/2024 1:36 PM CDT 09/07/2024 4:27 PM CDT Franck Flores MD LAB BLOOD ORDERABLES Fi nal Result AVERY [address] [facility] Department [place] [address] * (ABNORMAL) CBC with auto differential (09/07/2024 1:36 PM CDT) WBC 7.18 3.80 - 9.90 K/cumm Comment:Testing performed by : [address] [address] Hgb 5.0(C) 11.9 - 15.5 g/dL AVERY Comment: Repeated and Verified. This result has been called to Rosi Michaud RN (secure chat) by [email or web address] on 09/07/2024 14:12:10, and has been read back. Testing performed by: [address] [address] Hct 16.6(L) 35.6 - 45.5 % AEVRY Comment:Testing performed by : [address] [address] Plt 429(H) 150 - 400 K/cumm AVERY Comment:Testing performed by : [address] [address] MPV 8.8(L) 9.1 - 12.3 fL AVERY Comment:Testing performed by : [address] [address] RBC 2.17(L) 3.90 - 5.20 M/cumm AVERY Comment:Testing performed by : [address] [address] MCV 76.5(L) 81.3 - 96.4 fL AVERY Comment:Testing performed by : [address] [address] MCH 23.0(L) 27.1 - 33.3 pg AVERY Comment:Testing performed by : [address] [address] MCHC 30.1(L) 32.3 - 35.7 g/dL AVERY Comment:Testing performed by : [address] [address] RDW CV 17.2(H) 11.1 - 14.9 % AVERY Comment:Testing performed by : [facility], [address] [place] [address]., [address] RDW SD 48.4(H) 35.7 - 48.1 fL AVERY Comment:Testing performed by : [address] [address] NRBC abs 0.00 0.00 - 0.01 K/cumm AVERY Comment:Testing performed by : [address] [address] ANC Prelim 5.67 1.50 - 6.50 K/cumm AVERY Comment: Interpretive Data The rapid ANC is a preliminary automated count and may vary from the final ANC (Neut Abs) reported in the WBC differential that follows. Current interpretive data was last revised 2024. Testing performed by: [address] [address] Blood 09/07/2024 1:36 PM CDT 09/07/2024 1:38 PM CDT Franck Flores MD LAB BLOOD ORDERABLES Fi nal Result Performing Organization Address City/State/[facility] Co de Phone Number AVERY [address] [facility] Department [place] [address] documented in this encounter Visit Diagnoses Diagnosis Iron deficiency anemia, unspecified iron deficiency anemia type- Primary documented in this encounter Orders Appointment Requests Count Last Ordered Date Fi rst Ordered Date ONCBCN LAB APPOINTMENT 1 09/07/2024 documented in this encounter Care Teams Paver Layer Relationship Specialty Start Date End Date Neil Penny MD [address] [address] PCP - General Internal Medicine 08/30/21 Franck Flores MD [address] [place] [address] MEDICAL ONCOLOGY, [facility] [address] [place] [address] Medical Oncologist/Feller Operator Hematology and Oncology 12/25/22 documented as of this encounter
--- OUTSIDE RECORDS SUMMARY | 2024-09-08 13:34 | XMS_ITS | Clinical Summary ---
Author Organization [facility] Address [address] [place] [phone] Care Team Providers Care Chemistry Department Chair Name Role Phone Neil Penny MD Primary Care Provider Franck Flores MD Unavailable [phone] Allergies No known active allergies Medications metFORMIN [...] Encounters Date Type Department Care Team Description 09/07/2024 1:00 PM CDT Lab [facility] at [address] [address] Iron deficiency anemia, unspecified iron deficiency anemia type 09/07/2024 Telephone [facility] Oncology [address] [place] [address] [address] [place] [address] Alexia Montero, MAX 09/07/2024 Telephone [facility] Oncology [address] [place] [address] [address] [place] [address] Violetta Bahena CMA 09/04/2024 Telephone [facility] Oncology [address] [place] [address] [address] [place] [address] Alexia Montero, MAX from Last 3 Months Surgical History Surgery [...] on file 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 Gender Identity Female 09/27/2022 1:07 PM CDT Sexual Orientation Not on file Obstetrics History Last Filed Vital Signs Vital Sign Reading Time Taken Comments Blood Pressure 189/83 05/27/2024 3:23 PM STAKE SETTER not ified rn Pulse 82 05/27/2024 3:23 PM STAKE SETTER Temperature 37.1 C (98.8 F) 05/27/2024 3:23 PM STAKE SETTER Respiratory Rate 18 05/27/2024 3:23 PM STAKE SETTER Oxygen Saturation 97% 05/27/2024 3:23 PM STAKE SETTER Inhaled Oxygen Concentration - - Weight 53.1 kg (117 lb) 05/27/2024 3:23 PM STAKE SETTER Height 154.9 cm (5' 1 ) 10/09/2023 [...] Vaccine (1 of 2) 2010 Covid-19 Vaccine (4 - season) 2023 07/05/2021, 08/11/2020, 07/14/2020 Influenza Vaccine [...] type from Last 3 Months Results * (ABNORMAL) Blood smear review (09/07/2024 1:36 PM CDT) RBC morphology Consistent with RBC Indicies Comment:Testing performed by : [address] [address] Platelet estimate Increased(A) AVERY Comment:Testing performed by : [address] [address] Blood 09/07/2024 1:36 PM CDT 09/07/2024 1:38 PM CDT us Franck Flores MD LAB BLOOD ORDERABLES nal Result AVERY [facility]6 [facility] [place] [address] * Differential, auto (09/07/2024 1:36 PM CDT) Neutrophil abs 5.67 1.50 - 6.50 K/cumm Comment:Testing performed by : [address] [address] Imm gran abs 0.03 0.00 - 0.10 K/cumm AVERY Comment:Testing performed by : [address] [address] Lymphocyte abs 0.85 0.80 - 3.30 K/cumm AVERY Comment:Testing performed by : [address] [address] Monocyte abs 0.52 0.20 - 0.80 K/cumm AVERY Comment:Testing performed by : [address] [address] Eosinophil abs 0.07 0.00 - 0.50 K/cumm AVERY Comment:Testing performed by : [address] [address] Basophil abs 0.04 0.00 - 0.10 K/cumm AVERY Comment:Testing performed by : [address] [address] Neutrophil pct 79.0 % AVERY Comment: Interpretive Data Percent cell count reference ranges are not reported, since discordance with absolute values may lead to misinterpretation of CBC data. Current Interpretive Data was last revised on 2017. Testing performed by: [address] [address] Imm gran pct 0.4 % [facility] Comment: Interpretive Data Percent cell count reference ranges are not reported, since discordance with absolute values may lead to misinterpretation of CBC data. Current Interpretive Data was last revised on 2017. Testing performed by: [address] [address] Lymphocyte pct 11.8 % [facility] Comment: Interpretive Data Percent cell count reference ranges are not reported, since discordance with absolute values may lead to misinterpretation of CBC data. Current Interpretive Data was last revised on 2017. Testing performed by: [address] [address] Monocyte pct 7.2 % [facility] Comment: Interpretive Data Percent cell count reference ranges are not reported, since discordance with absolute values may lead to misinterpretation of CBC data. Current Interpretive Data was last revised on 2017. Testing performed by: [address] [address] Eosinophil pct 1.0 % [facility] Comment: Interpretive Data Percent cell count reference ranges are not reported, since discordance with absolute values may lead to misinterpretation of CBC data. Current Interpretive Data was last revised on 2017. Testing performed by: [address] [address] Basophil pct 0.6 % [facility] Comment: Interpretive Data Percent cell count reference ranges are not reported, since discordance with absolute values may lead to misinterpretation of CBC data. Current Interpretive Data was last revised on 2017. Testing performed by: [address] [address] Blood 09/07/2024 1:36 PM CDT 09/07/2024 1:38 PM CDT us Franck Flores MD LAB BLOOD ORDERABLES Fi nal Result Performing Organization Address [facility] Co de Phone Number AVERY [address] [facility] [place] [address] * (ABNORMAL) Iron profile w/ IBC (09/07/2024 1:36 PM CDT) [facility] Iron 12(L) 35 - 145 mcg/dL Comment:Testing performed by : [address] [address] TIBC 389 250 - 400 mcg/dL AVERY Comment:Testing performed by : [address] [address] Transferrin saturation 3(L) 20 - 50 % AVERY Comment:Testing performed by : [address] [address] Blood 09/07/2024 1:36 PM CDT 09/07/2024 4:27 PM CDT us Franck Flores MD LAB BLOOD ORDERABLES Fi nal Result Performing Organization Address [facility] Co de Phone Number AVERY [address] [facility] Department [place] [address] * (ABNORMAL) CBC with auto differential (09/07/2024 1:36 PM CDT) [facility] WBC 7.18 3.80 - 9.90 K/cumm Comment:Testing performed by : [address] [address] Hgb 5.0(C) 11.9 - 15.5 g/dL AVERY Comment: Repeated and Verified. This result has been called to Rosi Montero RN (secure chat) by [email or web address] on 09/07/2024 14:12:10, and has been read back. Testing performed by: [address] [address] Hct 16.6(L) 35.6 - 45.5 % AVERY Comment:Testing performed by : [address], [address] Plt 429(H) 150 - 400 K/cumm AVERY Comment:Testing performed by : [address] [address] MPV 8.8(L) 9.1 - 12.3 fL AVERY Comment:Testing performed by : [address] [address] RBC 2.17(L) 3.90 - 5.20 M/cumm AVERY Comment:Testing performed by : [address] [address] MCV 76.5(L) 81.3 - 96.4 fL AVERY Comment:Testing performed by : [address] [address] MCH 23.0(L) 27.1 - 33.3 pg AVERY Comment:Testing performed by : [address] [address] MCHC 30.1(L) 32.3 - 35.7 g/dL AVERY Comment:Testing performed by : [address] [address] RDW CV 17.2(H) 11.1 - 14.9 % AVERY Comment:Testing performed by : [address] [address] RDW SD 48.4(H) 35.7 - 48.1 fL AVERY Comment:Testing performed by : [address] [address] NRBC abs 0.00 0.00 - 0.01 K/cumm AVERY Comment:Testing performed by : [address] [address] ANC Prelim 5.67 1.50 - 6.50 K/cumm AVERY Comment: Interpretive Data The rapid ANC is a preliminary automated count and may vary from the final ANC (Neut Abs) reported in the WBC differential that follows. Current interpretive data was last revised 2024. Testing performed by: [facility], [address] [place] [address]., [address] Blood 09/07/2024 1:36 PM CDT 09/07/2024 1:38 PM CDT Franck Flores MD LAB BLOOD ORDERABLES Fi nal Result AVERY [address] [address] * Ferritin (09/07/2024 1:36 PM CDT) Ferritin 16 15 - 150 ng/mL Comment:Testing performed by : [address] [address] Blood 09/07/2024 1:36 PM CDT 09/07/2024 4:27 PM CDT Franck Flores MD LAB BLOOD ORDERABLES Fi nal Result Performing Organization Address [facility] Co de Phone Number AVERY [address] [address] from Last 3 Months Insurance [facility] [address] [facility] Care Teams Chemistry Department Chair Relationship Specialty Start Date End Date Neil Penny MD [address] [place] [address] PCP - General Internal Medicine 08/30/21 Franck Flores MD [address] [place] [address] MEDICAL ONCOLOGY, [address] [address] Medical Oncologist/Room Service Waiter Hematology and Oncology 12/25/22
--- OUTSIDE RECORDS SUMMARY | 2024-09-08 13:34 | XMS_ITS | Clinical Summary ---
Author Organization [facility] Address [address] [place] [address] Care Team Providers Care Stuffing Machine Operator Name Role Phone Neil Penny MD Primary Care Provider Source Comments [facility],non-owned Affiliates and Associated Physician Practices is amultiple site organization consisting of ambulatory clinics and hospital sitesin [place], [place], [place] and [place]. This disclosure is being madepursuant to the Care Everywhere program and may not contain all information available regarding this patient. 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
--- OUTSIDE RECORDS SUMMARY | 2024-09-08 13:34 | XMS_ITS | Encounter Summary ---
Author Organization [facility] Address [address] [place] [address] Phone Care Team Providers Care Processing Supervisor Name Role Phone Neil Penny MD Primary Care Provider Franck Flores MD Unavailable [phone] Encounter Details Date Type Department Care Team (Late st Contact Info) Description 09/07/2024 Telephone [facility] Oncology [facility] [address] [place] [phone] Violetta Bahena CMA Social History Tobacco Use Types Packs/Day Years [...] on file 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 I called Irene back and made her aware we would not be able to get her in for blood transfusion today because it is to late in the day. I made pt aware if she is needing blood today we could contact her once labs are resulted with either an appt to come in later in the week or she would need to report to the ED. Pt verbalized understanding. documented in this encounter Plan of Treatment Not on file documented as of this encounter Visit Diagnoses Not on filedocumented in this encounter Care Teams Processing Supervisor Relationship Specialty Start Date End Date Neil Penny MD [facility] [address] PCP - General Internal Medicine 08/30/21 Franck Flores MD [facility]8 [facility] MEDICAL ONCOLOGY, [address] [address] Medical Oncologist/Television Writer Hematology and Oncology 12/25/22 documented as of this encounter
--- OUTSIDE RECORDS SUMMARY | 2024-09-08 13:34 | XMS_ITS | Clinical Summary ---
Author Organization [facility] Address [address] [place] [address] Care Team Providers Care Notch Grinder Name Role Phone Neil Penny MD Primary Care Provider [phone] Allergies No known active allergies Medications atorvastatin [...] capsule by mouth. Active Cobalamin Combinations (VITAMIN Q28-SXZXH ACID) 500-400 MCG Tab Take 1 tablet [...] Date Aseptic necrosis of head of humerus ([facility]) 04/19/2022 Disorder of shoulder 04/19/2022 Localized, primary osteoarthritis of shoulder re gion 04/19/2022 Ileus ([facility]) 04/14/2022 Acquired pes planus of both feet 01/06/2022 Diabetic peripheral neuropat hy associated with type 2 diabetes mellitus ([facility]) 01/06/2022 Gastric AVM 10/04/2021 Trochanteric bursitis of left hip 09/28/2021 Avascular necrosis of femoral head ([facility]) 05/23/2021 GI bleed not requiring more than 4 units of blood in 24 hours, ICU, or surgery 03/29/2021 GI bleed 03/28/2021 Chronic obstructive pulmonary disease ([facility]) 11/14/2020 Chronic neck pain 11/14/2020 Degeneration of lumbar intervertebral disc 11/14 Iron deficiency anemia 11/14/2020 Moderate smoker (20 or less per day) 11/14/2020 Osteoarthrosis 11/14/2020 Proteinuria 11/14/2020 Stage 3a chronic kidney disease 11/14/2020 Type 2 diabetes mellitus wit hout complication ([facility]) 11/14/2020 Diabetes mellitus ([facility]) 01/11/2017 Cardiovascular symptoms 12/17/2014 Chest pain 12/17/2014 [...] Vaccines (1 of 2) 2010 Pneumococcal Vaccine: 50+ Years (2 of 2 - PCV) 06/25/2018 06/25/2017 [...] remain independent in ADLs upon discharge from [facility] Connie Edmond RN Procedures Procedure Name Priority Date/Time Associated Diagnosis Comments COLONOSCOPY Routine 09/07/2022 9:54 AM CDT OCCULT BLOOD, FECES STAT 03/28/2021 4 :30 PM DINING MANAGER from Last 3 Months or Most Recently Relevant to Health Maintenance Results * OCCULT BLOOD, FECES (03/28/2021 4:30 PM DINING MANAGER) OCCULT BLOOD FECAL NEGATIVE 03/28/2021 5:21 PM DINING MANAGER [facility] STOOL SPECIMEN / Unknown 03/28/2021 4:30 PM DINING MANAGER Karley LESLIE BODY FLUIDS AND STOOLS ORDERA BLES Final Result [facility] [address] [place] [address], [place] [phone] from Last 3 Months or Most Recently Relevant to Health Maintenance Insurance [employer] Advance Directives * Full Code (Latest Code Status on File) Date Activated Date Inactivated Comments 04/14/2022 4:37 PM 04/19/2022 11:04 PM * Full Code Date Activated Date Inactivated Comments 03/28/2021 7:37 PM 03/30/2021 2:20 PM Care Teams Notch Grinder Relationship Specialty Start Date End Date Neil Penny MD PCP - General INTERNAL MEDICINE 03/28/21
--- OUTSIDE RECORDS SUMMARY | 2024-09-08 13:34 | XMS_ITS | Referral Summary ---
Author Organization [facility] Address [address] [place] [phone] Care Team Providers Care Identification Printing Machine Setter Name Role Phone Neil Penny MD Primary Care Provider Franck Flores MD Unavailable [phone] Encounters Date Type Department Care Team Description 09/07/2024 Telephone [facility] Oncology [address] [place] [phone] Alexia Montero, MAX 09/07/2024 Telephone [facility] Oncology [address] [place] [phone] Violetta Bahena CMA 09/07/2024 1:00 PM CDT Lab [facility] at [address] [address] Iron deficiency anemia, unspecified iron deficiency anemia type 09/04/2024 Telephone [facility] Oncology [address] [place] [phone] Alexia Montero, RN from Last 3 Months Allergies No known [...] on file Legal Sex Female 2:23 AM BUS ASSISTANT Gender Identity Female 09/27/2022 1:07 PM CDT Sexual Orientation Not on file Last Filed Vital Signs Vital Sign Reading Time Taken Comments Blood Pressure 189/83 05/27/2024 3:23 PM BUS ASSISTANT not ified rn Pulse 82 05/27/2024 3:23 PM BUS ASSISTANT Temperature 37.1 C (98.8 F) 05/27/2024 3:23 PM BUS ASSISTANT Respiratory Rate 18 05/27/2024 3:23 PM BUS ASSISTANT Oxygen Saturation 97% 05/27/2024 3:23 PM BUS ASSISTANT Inhaled Oxygen Concentration - - Weight 53.1 kg (117 lb) 05/27/2024 3:23 PM BUS ASSISTANT Height 154.9 cm (5' 1 ) 10/09/2023 [...] with RBC Indicies Comment:Testing performed by : [address] [address] Platelet estimate Increased(A) AVERY SPANN Comment:Testing performed by : [facility], [address] [place] [address]., [address] Blood 09/07/2024 1:36 PM CDT 09/07/2024 1:38 PM CDT us Franck Flores MD LAB BLOOD ORDERABLES Fi nal Result AVERY SPANN [address] [facility] [place] [address] * Differential, auto (09/07/2024 1:36 PM CDT) Neutrophil abs 5.67 1.50 - 6.50 K/cumm Comment:Testing performed by : [address] [address] Imm gran abs 0.03 0.00 - 0.10 K/cumm [facility] Comment:Testing performed by : [address] [address] Lymphocyte abs 0.85 0.80 - 3.30 K/cumm [facility] Comment:Testing performed by : [address] [address] Monocyte abs 0.52 0.20 - 0.80 K/cumm [facility] Comment:Testing performed by : [address] [address] Eosinophil abs 0.07 0.00 - 0.50 K/cumm [facility] Comment:Testing performed by : [address] [address] Basophil abs 0.04 0.00 - 0.10 K/cumm [facility] Comment:Testing performed by : [address] [address] Neutrophil pct 79.0 % [facility] Comment: Interpretive Data Percent cell count reference ranges are not reported, since discordance with absolute values may lead to misinterpretation of CBC data. Current Interpretive Data was last revised on 2017. Testing performed by: [address] [address] Imm gran pct 0.4 % [facility] Comment: Interpretive Data Percent cell count reference ranges are not reported, since discordance with absolute values may lead to misinterpretation of CBC data. Current Interpretive Data was last revised on 2017. Testing performed by: [address] [address] Lymphocyte pct 11.8 % [facility] Comment: Interpretive Data Percent cell count reference ranges are not reported, since discordance with absolute values may lead to misinterpretation of CBC data. Current Interpretive Data was last revised on 2017. Testing performed by: [address] [address] Monocyte pct 7.2 % AVERY Comment: Interpretive Data Percent cell count reference ranges are not reported, since discordance with absolute values may lead to misinterpretation of CBC data. Current Interpretive Data was last revised on 2017. Testing performed by: [address] [address] Eosinophil pct 1.0 % AVERY Comment: Interpretive Data Percent cell count reference ranges are not reported, since discordance with absolute values may lead to misinterpretation of CBC data. Current Interpretive Data was last revised on 2017. Testing performed by: [address] [address] Basophil pct 0.6 % AVERY Comment: Interpretive Data Percent cell count reference ranges are not reported, since discordance with absolute values may lead to misinterpretation of CBC data. Current Interpretive Data was last revised on 2017. Testing performed by: [address] [address] Blood 09/07/2024 1:36 PM CDT 09/07/2024 1:38 PM CDT Franck Flores MD LAB BLOOD ORDERABLES [facility] Result AVERY [address] [facility] [place], [place] [id number] * (ABNORMAL) Iron profile w/ IBC (09/07/2024 1:36 PM CDT) Iron 12(L) 35 - 145 mcg/dL Comment:Testing performed by : [address] [address] TIBC 389 250 - 400 mcg/dL AVERY Comment:Testing performed by : [address] [address] Transferrin saturation 3(L) 20 - 50 % AVERY Comment:Testing performed by : [address] [address] Blood 09/07/2024 1:36 PM CDT 09/07/2024 4:27 PM CDT Franck Flores MD LAB BLOOD ORDERABLES nal Result AVERY SPANN [address] [facility] [place] [address] * (ABNORMAL) CBC with auto differential (09/07/2024 1:36 PM CDT) WBC 7.18 3.80 - 9.90 K/cumm Comment:Testing performed by : [address] [address] Hgb 5.0(C) 11.9 - 15.5 g/dL AVERY SPANN Comment: Repeated and Verified. This result has been called to Rosi Montero RN (secure chat) by [email or web address] on 09/07/2024 14:12:10, and has been read back. Testing performed by: [address] [address] Hct 16.6(L) 35.6 - 45.5 % AVERY Comment:Testing performed by : [address] [address] Plt 429(H) 150 - 400 K/cumm AVERY Comment:Testing performed by : [address] [address] MPV 8.8(L) 9.1 - 12.3 fL AVERY Comment:Testing performed by : [address] [address] RBC 2.17(L) 3.90 - 5.20 M/cumm AVERY Comment:Testing performed by : [address] [address] MCV 76.5(L) 81.3 - 96.4 fL AVERY Comment:Testing performed by : [address] [address] MCH 23.0(L) 27.1 - 33.3 pg AVERY SPANN Comment:Testing performed by : [address] [address] MCHC 30.1(L) 32.3 - 35.7 g/dL AVERY SPANN Comment:Testing performed by : [address] [address] RDW CV 17.2(H) 11.1 - 14.9 % AVERY SPANN Comment:Testing performed by : [address] [address] RDW SD 48.4(H) 35.7 - 48.1 fL AVERY Comment:Testing performed by : [address] [address] NRBC abs 0.00 0.00 - 0.01 K/cumm AVERY Comment:Testing performed by : [address] [address] ANC Prelim 5.67 1.50 - 6.50 K/cumm AVERY Comment: Interpretive Data The rapid ANC is a preliminary automated count and may vary from the final ANC (Neut Abs) reported in the WBC differential that follows. Current interpretive data was last revised 2024. Testing performed by: [address] [address] Blood 09/07/2024 1:36 PM CDT 09/07/2024 1:38 PM CDT Franck Flores MD LAB BLOOD ORDERABLES Fi nal Result Performing Organization Address [facility] Phone Number [facility] [address] [facility] [place], [place] [id number] * Ferritin (09/07/2024 1:36 PM CDT) Pathologist [facility] Ferritin 16 15 - 150 ng/mL Comment:Testing performed by : [address] [address] Blood 09/07/2024 1:36 PM CDT 09/07/2024 4:27 PM CDT Franck Flores MD LAB BLOOD ORDERABLES Fi nal Result Performing Organization Address City/[facility] [address]/ZIP Co de Phone Number [facility] [address] [facility] [place] [address] from Last 3 Months Insurance [facility] [place] [address] [facility] Care Teams Identification Printing Machine Setter Relationship Specialty Start Date End Date Neil Penny MD [address] [address] PCP - General Internal Medicine 08/30/21 Franck Flores MD [address] [place] [address] MEDICAL ONCOLOGY, [place] [address] Medical Oncologist/Ophthalmic Nurse Hematology and Oncology 12/25/22
--- OUTSIDE RECORDS SUMMARY | 2024-09-08 13:34 | XMS_ITS | Clinical Summary ---
Author Organization [facility] Facility Address [address] [address] Care Team Providers Care Aerial Installer Name Role Phone Neil Penny MD Primary Care Provider [phone] Allergies No known active allergies Medications albuterol [...] time each day Active Cobalamin Combinations (Vitamin W96-Pqxfa Acid) 500-400 MCG tablet Take 1 tablet [...] Most Recently Relevant to Health Maintenance Insurance [facility] ([facility]) Care Teams Aerial Installer Relationship Specialty Start Date End Date Neil Penny MD [address] [place] [address] PCP - General Internal Medicine 12/19/20
--- OUTSIDE RECORDS SUMMARY | 2024-09-08 13:34 | XMS_ITS | Encounter Summary ---
Author Organization [facility] , [facility] Address [address] [facility] [place] [address] Phone Care Team Providers Care Business Account Executive Name Role Phone Neil Penny MD Primary Care Provider [phone] Reason for Visit * Reason Comments Med Refill Encounter Details Date Type Department Care Team (Late st Contact Info) Description 02/03/2022 Refill [employer] [facility], [facility] [address] [facility] [address] [place] [address] Rachid Orourke MD [address] [facility] [address] [place] [address] Social History Tobacco Use Types [...] on filedocumented in this encounter Care Teams Business Account Executive Relationship Specialty Start Date End Date Neil Penny MD [address] [place] [address] PCP - General Internal Medicine 12/19/20 documented as of this encounter
== END 2024-09-08 13:15 | disposition home or self-care (01) ==
PROVIDERS: PCP Family Medicine; Visit Provider Neurological Surgery
DX: M47.22 Other spondylosis with radiculopathy, cervical region (principal); Z98.1 Arthrodesis status
CPT/HCPCS: 72125; 72141

== ENCOUNTER 2024-11-10 09:31 | Day surgery (SDC) | payer OTHER, SELFPAY ==
[2024-11-04 14:41] VITALS: BMI 19.4
--- NOTE | ~2024-11-10 | XR_ITS ---
XR fluoroscopy no charge Indication: Leftward C7-T1 interlaminar epidural steroid injection TECHNIQUE: Fluoroscopy used during Leftward C7-T1 interlaminar epidural steroid injection performed by [Franck Cohen MD] on 11/10/2024. 11 seconds of fluoroscopy with 5 fluoroscopic images captu red. FINDINGS: Correlate with procedure note. IMPRESSION: Fluoroscopy used during Leftward C7-T1 interlaminar epidural steroid injection. Reviewed, dictated and finalized at location B. IMPRESSION: Fluoroscopy used during Leftward C7-T1 interlaminar epidural steroi d injection.
--- NOTE | 2024-11-10 08:18 | WPDHPUPDATE1 ---
History and Physical Update Update Date/Time: 11/10/24 08:18 History and Physical has been reviewed, including an updated exam of the patient. There are NO changes in the patient's condition. Risks, benefits, and alternatives have been discussed and questions answered. Patient agrees to proceed with procedure.
--- NOTE | 2024-11-10 08:18 | W.PM.PROC2 ---
Procedure Note - Detailed Date of Procedure 11/10/24 Pre-op Diagnosis Cervical Spondylosis with Myelopathy Post-op Diagnosis Same Procedure Performed Leftward Cervical Interlaminar Epidural Steroid Injection at C7-T1 under Fluoroscopic Guidance and with Contrast Control. Surgeon Franck Cohen MD Anesthesia Local Description of Procedure INFORMED CONSENT: Risks, benefits and alternatives to the procedure were discussed in detail with the patient who expressed explicit understanding and consent to proceed. Patient was informed verbally and in written form regarding the risks associated with the procedure including the low risk of serious infection, bleeding/bruising, allergic reaction, nerve or organ injury, paralysis, procedural site pain or discomfort, worsening pain and/or mobility, failure to treat and/or disfigurement. The patient expressed explicit understanding and consent to proceed. All materials required for the procedure were available prior to procedure start. Site and side was marked prior to procedure and confirmed in the presence of the patient. PROCEDURE IN DETAIL: The patient was brought to the procedural suite and placed in the prone position. Patient's head was positioned and stabilized with a ProneView pillow or equivalent. Patient was made comfortable with use of pillows under the chest, hips and ankles. Skin overlying the injection site was prepared broadly with ChloraPrep applicator and draped in a sterile manner. Aseptic technique was employed throughout. The endplates of the vertebral body at the site of interest were aligned in the AP view. Slight caudad tilt and ipsilateral oblique angulation was utilized to optimize visualization of the targeted posterior intervertebral foramen at C7-T1. Local anesthesia was established by infiltration with approximately 5 mL of 2% lidocaine via a 1-1/2 inch 27-gauge needle. A 20-gauge 4-inch Tuohy epidural needle was advanced intermittently until appropriate loss of resistance to air was identified via plastic loss of resistance syringe. Lateral view was used to confirm the appropriate positioning of the needle tip within the posterior epidural space. In the AP view, 2.0 mL of Omnipaque 300 contrast medium was injected after negative aspiration for CSF, blood or other bodily fluid, showing appropriate epidural spread of contrast without evidence of intravascular or intrathecal placement. After negative repeat aspiration for CSF, blood or other bodily fluid, A 4 mL solution containing 6 mg of betamethasone in sterile PF Normal Saline was injected after negative repeat aspiration. Appropriate spread of the injectate was confirmed with washout of previously injected contrast. No parasthesias were elicited. Needle was removed completely intact without difficulty. Images were saved and documented in the patient chart. Patient's skin was cleansed and sterile bandage applied. The patient tolerated the procedure well. The patient was transported to the recovery area in stable condition where they were observed for an appropriate amount of time prior to discharge, without evidence of complication. The patient was instructed to avoid excessive activity for the next 48 hours, including overhead work, reaching or extended device/computer usage. Showers only for 48 hours. They were instructed not to drive or operate heavy machinery for 24 hours. They are to monitor for severe headaches, fevers, chills, night sweats, erythema/swelling at the site or any other signs of infection, bleeding/bruising, bowel or bladder changes as well as new pain, weakness or numbness in the upper or lower extremity. Should they notice these changes, they are instructed to call our office immediately or report directly to the nearest Emergency Department if no answer or if after posted office hours. CONTRAST WASTED: 28mL Omnipaque 300. Complications No immediate complications Condition Stable Disposition Same day [facility] Billing Surgery - Charge Forward: Surgery Billing
[2024-11-10 09:44] VITALS: BP 128/64; PULSE 74; RESP 15; TEMP 36.3; O2SAT 100
--- OUTSIDE RECORDS SUMMARY | 2024-11-10 09:52 | XMS_ITS | Clinical Summary ---
Author Organization [facility] Address [address] [place] [address] Care Team Providers Care Medical Detailist Name Role Phone Neil Penny MD Primary Care Provider [phone] Allergies No known active allergies Medications atorvastatin [...] capsule by mouth. Active Cobalamin Combinations (VITAMIN E41-APDYR ACID) 500-400 MCG Tab Take 1 tablet [...] Date Aseptic necrosis of head of humerus ([facility]) 04/19/2022 Disorder of shoulder 04/19/2022 Localized, primary osteoarthritis of shoulder re gion 04/19/2022 Ileus ([facility]) 04/14/2022 Acquired pes planus of both feet 01/06/2022 Diabetic peripheral neuropat hy associated with type 2 diabetes mellitus ([facility]) 01/06/2022 Gastric AVM 10/04/2021 Trochanteric bursitis of left hip 09/28/2021 Avascular necrosis of femoral head ([facility]) 05/23/2021 GI bleed not requiring more than 4 units of blood in 24 hours, ICU, or surgery 03/29/2021 GI bleed 03/28/2021 Chronic obstructive pulmonary disease ([facility]) 11/14/2020 Chronic neck pain 11/14/2020 Degeneration of lumbar intervertebral disc 11/14 Iron deficiency anemia 11/14/2020 Moderate smoker (20 or less per day) 11/14/2020 Osteoarthrosis 11/14/2020 Proteinuria 11/14/2020 Stage 3a chronic kidney disease 11/14/2020 Type 2 diabetes mellitus wit hout complication ([facility]) 11/14/2020 Diabetes mellitus ([facility]) 01/11/2017 Cardiovascular symptoms 12/17/2014 Chest pain 12/17/2014 [...] 3:40 PM CDT Height 154.9 cm (5' 1) 09/04/2022 3:40 PM CDT Body Mass Index [...] remain independent in ADLs upon discharge from [facility] Connie Edmond RN Procedures Procedure Name Priority Date/Time Associated Diagnosis Comments COLONOSCOPY Routine 09/07/2022 9:54 AM CDT OCCULT BLOOD, FECES STAT 03/28/2021 4 :30 PM [employer] from Last 3 Months or Most Recently Relevant to Health Maintenance Results * OCCULT BLOOD, FECES (03/28/2021 4:30 PM [employer]) OCCULT BLOOD FECAL NEGATIVE 03/28/2021 5:21 PM [employer] [facility] STOOL SPECIMEN / Unknown 03/28/2021 4:30 PM [employer] Karley LESLIE BODY FLUIDS AND STOOLS ORDERA BLES Final Result [facility] [address] [place] [address], [place] [phone] from Last 3 Months or Most Recently Relevant to Health Maintenance Insurance [employer] Advance Directives * Full Code (Latest Code Status on File) Date Activated Date Inactivated Comments 04/14/2022 4:37 PM 04/19/2022 11:04 PM * Full Code Date Activated Date Inactivated Comments 03/28/2021 7:37 PM 03/30/2021 2:20 PM Care Teams Medical Detailist Relationship Specialty Start Date End Date Neil Penny MD PCP - General INTERNAL MEDICINE 03/28/21
[2024-11-10 10:17] VITALS: BP 146/70; PULSE 74; RESP 10; O2SAT 99
[2024-11-10 10:21] VITALS: BP 139/69; PULSE 72; RESP 12; O2SAT 100
[2024-11-10] MEDS: BETAMETHASONE SODIUM PHOSPHATE PF INJ 6 MG/ML VIAL INFILTRATE (10:21)
[2024-11-10 10:26] VITALS: BP 157/58; PULSE 85; RESP 14; O2SAT 100
== END 2024-11-10 10:44 | disposition home or self-care (01) ==
PROVIDERS: PCP Family Medicine; Visit Provider Anesthesiology Pain Medicine
PROC: (CPT 62321; principal; 2024-11-10 10:30)
DX: M47.812 Spondylosis without myelopathy or radiculopathy, cervical region (principal)
CPT/HCPCS: 62321; 99199

== ENCOUNTER 2025-02-05 10:02 | Outpatient (CLI) | payer OTHER, SELFPAY ==
--- NOTE | ~2025-02-05 | NM_ITS ---
EXAMINATION: NM bone scan whole body DATE: 02/05/2025 15:28 INDICATION: Dorsalgia with unspecified hip and back pain TECHNIQUE: 25 mCi Tc-99m HDP was administered intravenously. Delayed whole-body scintigrams were obtained. COMPARISON: Cervical, thoracic and lumbar spine radiographs and bilateral hip and pelvis radiographs dated 01/29/2025 FINDINGS: Photopenic defect at the left hip and proximal femur corresponding to a noncemented left total hip arthroplasty. There is a focus of mild increased uptake at the distal tip of the femoral component with lower activity than at the anterior iliac spine which remains within normal limits. No evident abnormal lucency on the prior radiographs to suggest loosening. There is mild uptake associated with small amount of chronic heterotopic ossification at the tip of the left greater trochanter. Normal minimal activity at the periphery of photopenic defects at both knees likely related to bilateral total knee arthroplasties. Mild likely degenerative joint centered uptake at the bilateral feet and ankles. No abnormal uptake in the thoracic or lumbar spine. There is increased uptake bilaterally at the posterior aspect of the upper cervical spine which appears to correspond to facet osteoarthritis at T2-T3. Photopenic defects in the atypical region of the cervical spinous processes corresponding to multilevel laminectomies on prior radiographs. No other foci of abnormal bone uptake suspicious for acute osseous adenopathy or metastatic disease. IMPRESSION: 1. No lesion suspicious for acute osseous or mild aortic metastatic disease. 2. Expected mild uptake associated with a left total hip and bilateral total knee arthroplasties as detailed above. 2. Mild likely degenerative joint centered uptake at the bilateral C2-C3 facet joints and at the bilateral feet and ankles. Reviewed, dictated and finalized at location A. IMPRESSION: 1. No lesion suspicious for acute osseous or mild aortic metastatic disease. 2. Expected mild uptake associated with a left total hip and bilateral total kn ee arthroplasties as detailed above. 2. Mild likely degenerative joint centered uptake at the bilateral C2-C3 facet joints and at the bilateral feet and ankles.
== END 2025-02-05 10:03 | disposition home or self-care (01) ==
PROVIDERS: PCP Family Medicine; Visit Provider Orthopaedic Surgery
DX: M54.9 Dorsalgia, unspecified (principal); M25.551 Pain in right hip; M25.552 Pain in left hip
CPT/HCPCS: 78306; A9503